=== PATIENT | male | born 1955 | race Caucasian/White ===

== ENCOUNTER → 2016-05-21 | Outpatient (CLI) | payer OTHER ==
[~2016-05-21] MED LIST: ASPI81TA28 PO; ATOR-24 PO; DSY50 PO; GLC500 PO; HALO5TAB PO; LISI-729 PO; PSYL55.43 PO; ZBEC PO
[2016-05-21 08:45] LABS: ALT/SGPT 21 U/L (12-78); BLOOD UREA NITROGEN 8 mg/dl (7-18); CALCIUM 8.6 mg/dl (8.5-10.1); CARBON DIOXIDE 27 mmol/L (21-32); CHLORIDE 104 mmol/L (98-107); CREATININE 0.78 mg/dl (0.60-1.40); GLUCOSE 121 mg/dl (70-99); POTASSIUM 3.8 mmol/L (3.5-5.1); SODIUM 141 mmol/L (136-145)
[2016-05-21 08:48] LABS: ALB/GLOB RATIO 0.8 (0.9-2); ALKALINE PHOSPHATASE 69 U/L (45-117); AST/SGOT 16 U/L (15-37)
== END ==
LOC: C.LABUPUNI 08:16
PROVIDERS: ATTEND Family Medicine
DX: E11.29 Type 2 diabetes mellitus with other diabetic kidney complication (principal)

== ENCOUNTER → 2016-05-28 | Outpatient (CLI) | payer OTHER ==
[2016-05-28 09:40] LABS: ESTIMATED AVERAGE GLUCOSE 151 mg/dl; HA1C FLAG Normal (Normal)
== END ==
LOC: C.LABUPUNI 08:57
PROVIDERS: ATTEND Family Medicine
DX: E11.29 Type 2 diabetes mellitus with other diabetic kidney complication (principal)

== ENCOUNTER → 2016-06-25 | Outpatient (CLI) | payer OTHER | LOC: C.LABUPUNI 09:01 | PROVIDERS: ATTEND Family Medicine | DX: S91.104A Unspecified open wound of right lesser toe(s) without damage to nail, initial encounter (principal); X58.XXXA Exposure to other specified factors, initial encounter ==

== ENCOUNTER → 2016-07-23 | Outpatient (CLI) | payer OTHER ==
[2016-07-23 10:23] LABS: C-REACTIVE PROTEIN < 0.29 mg/dl (0-0.29); CHOLESTEROL 101 mg/dl (0-200); CHOLESTEROL/HDL RATIO 2.9; HDL CHOLESTEROL 35 mg/dl; LDL CHOLESTEROL CALCULATED 43 mg/dl; TRIGLYCERIDES 116 mg/dl (0-150); VERY LOW DENSITY LIPOPROT CALC 23 mg/dl
== END ==
LOC: C.LABUPUNI 09:26
PROVIDERS: ATTEND Family Medicine
DX: E78.5 Hyperlipidemia, unspecified (principal); D64.9 Anemia, unspecified

== ENCOUNTER → 2016-09-09 | Outpatient (CLI) | payer OTHER ==
[2016-09-09 10:49] LABS: HEMATOCRIT 32.3 % (42-52); MEAN CELL VOLUME 86.8 fL (80-100); MEAN CORPUSCULAR HEMOGLOBIN 29.8 pg (25-34); MEAN CORPUSCULAR HGB CONC 34.4 g/dl (32-36); MEAN PLATELET VOLUME 9.5 fL (7.4-10.4); PLATELET COUNT 259 K/uL (130-400); RED BLOOD COUNT 3.72 M/uL (4.7-6.1)
[2016-09-09 11:11] LABS: ESTIMATED AVERAGE GLUCOSE 163 mg/dl; HA1C FLAG Normal (Normal)
== END | disposition home or self-care (01) ==
LOC: C.LABUPUNI 09:24
PROVIDERS: ATTEND Nurse Practitioner Family
DX: E11.29 Type 2 diabetes mellitus with other diabetic kidney complication (principal); I10 Essential (primary) hypertension; M62.81 Muscle weakness (generalized)

== ENCOUNTER → 2016-12-09 | Outpatient (CLI) | payer OTHER ==
[2016-12-09 10:15] LABS: CREATININE 0.83 mg/dl (0.60-1.40)
[2016-12-09 10:48] LABS: ESTIMATED AVERAGE GLUCOSE 169 mg/dl; HA1C FLAG Normal (Normal)
== END | disposition home or self-care (01) ==
LOC: C.LABUPUNI 09:44
PROVIDERS: ATTEND Nurse Practitioner Family
DX: E11.29 Type 2 diabetes mellitus with other diabetic kidney complication (principal); M62.81 Muscle weakness (generalized)

== ENCOUNTER → 2017-03-03 | Outpatient (CLI) | payer OTHER ==
[2017-03-03 09:52] LABS: ESTIMATED AVERAGE GLUCOSE 194 mg/dl; HA1C FLAG Normal (Normal)
== END ==
LOC: C.LABUPNIT 09:20
PROVIDERS: ATTEND Nurse Practitioner Family
DX: E11.29 Type 2 diabetes mellitus with other diabetic kidney complication (principal)

== ENCOUNTER → 2017-05-26 | Outpatient (CLI) | payer OTHER ==
[2017-05-26 19:56] LABS: INFLUENZA A PCR Neg for Influ A (NEG); INFLUENZA B PCR Neg for Influ B (NEG)
== END ==
LOC: C.LABUPUNI 17:55
PROVIDERS: ATTEND Nurse Practitioner Family
DX: Z20.828 Contact with and (suspected) exposure to other viral communicable diseases (principal)

== ENCOUNTER → 2017-06-03 | Outpatient (CLI) | payer OTHER ==
[2017-06-03 08:08] LABS: HEMATOCRIT 34.8 % (42-52); MEAN CELL VOLUME 89.2 fL (80-100); MEAN CORPUSCULAR HEMOGLOBIN 30.8 pg (25-34); MEAN CORPUSCULAR HGB CONC 34.5 g/dl (32-36); MEAN PLATELET VOLUME 10.5 fL (7.4-10.4); PLATELET COUNT 222 K/uL (130-400); RED CELL DISTRIBUTION WIDTH CV 12.8 % (11.5-14.5); RED CELL DISTRIBUTION WIDTH SD 40.6 fL (36.4-46.3); WHITE BLOOD COUNT 6.32 K/uL (4.8-10.8)
[2017-06-03 08:20] LABS: ALKALINE PHOSPHATASE 73 U/L (45-117); ALT/SGPT 20 U/L (12-78); AST/SGOT 12 U/L (15-37); BLOOD UREA NITROGEN 7 mg/dl (7-18); CALCIUM 8.6 mg/dl (8.5-10.1); CARBON DIOXIDE 25 mmol/L (21-32); CHOLESTEROL 91 mg/dl (0-200); CREATININE 0.63 mg/dl (0.60-1.40); GLUCOSE 130 mg/dl (70-99); LDL CHOLESTEROL CALCULATED 39 mg/dl; POTASSIUM 3.8 mmol/L (3.5-5.1); SODIUM 136 mmol/L (136-145); TOTAL PROTEIN 6.5 gm/dl (6.4-8.2)
[2017-06-03 08:29] LABS: HEMOGLOBIN A1C 6.6 % (4.5-5.6)
== END ==
LOC: C.LABUPUNI 07:55
PROVIDERS: ATTEND Nurse Practitioner Family
DX: E11.29 Type 2 diabetes mellitus with other diabetic kidney complication (principal); I10 Essential (primary) hypertension; I73.9 Peripheral vascular disease, unspecified; E78.5 Hyperlipidemia, unspecified

== ENCOUNTER → 2017-06-13 | Outpatient (CLI) | payer OTHER ==
[2017-06-13 05:56] LABS: CREATININE 0.76 mg/dl (0.60-1.40)
== END ==
LOC: C.LABUPUNI 11:53
PROVIDERS: ATTEND Nurse Practitioner Family
DX: E11.29 Type 2 diabetes mellitus with other diabetic kidney complication (principal)

== ENCOUNTER → 2017-07-23 | Outpatient (CLI) | payer OTHER ==
--- NOTE | 2017-07-31 09:00 | CODING QUERY NO DIAGNOSIS ---
: 1955 TREATMENT RENDERED WITHOUT A DIAGNOSIS To promote full compliance with coding requirements relating to patient care, physician participation is requested in all cases of press operator carbon products uncertainty. Please assist us with providing a diagnosis/symptom for the test(s) below: A diagnosis/symptom was not documented on your Order. A valid diagnosis/symptom is required to bill all insurances. Please remember that we are unable to code a diagnosis of rule out, probable, possible, questionable, or suspected. Tests that require a diagnosis: 07/23/17 * FASTING LIPID PROFILE DIAGNOSIS: Provider Signature: Date: Thank you Aye Villanueva tomoguides Information Management Once completed, please kindly fax back to [phone] For questions please call [phone]
== END ==
LOC: C.LABUPUNI 07:53
PROVIDERS: ATTEND Nurse Practitioner Family
DX: E78.5 Hyperlipidemia, unspecified (principal)

== ENCOUNTER → 2017-08-31 | Outpatient (CLI) | payer OTHER ==
[2017-08-31 10:18] LABS: HEMOGLOBIN A1C 6.2 % (4.5-5.6)
== END ==
LOC: C.LABUPUNI 09:33
PROVIDERS: ATTEND Nurse Practitioner Family
DX: E11.29 Type 2 diabetes mellitus with other diabetic kidney complication (principal)

== ENCOUNTER → 2017-12-01 | Outpatient (CLI) | payer OTHER ==
[~2017-12-01] MED LIST changes: -DSY50 PO; +TRAZ1TAB49 PO
[2017-12-01 08:53] LABS: HEMOGLOBIN A1C 6.1 % (4.5-5.6)
== END ==
LOC: C.LABUPUNI 07:48
PROVIDERS: ATTEND Nurse Practitioner Family
DX: E11.29 Type 2 diabetes mellitus with other diabetic kidney complication (principal)

== ENCOUNTER → 2017-12-10 | Outpatient (CLI) | payer OTHER | LOC: C.LABUPUNI 07:38 | PROVIDERS: ATTEND Nurse Practitioner Family | DX: F20.0 Paranoid schizophrenia (principal) ==

== ENCOUNTER → 2017-12-14 | Outpatient (CLI) | payer OTHER | LOC: C.LABUPUNI 09:40 | PROVIDERS: ATTEND Nurse Practitioner Family | DX: E11.29 Type 2 diabetes mellitus with other diabetic kidney complication (principal) ==

== ENCOUNTER 2020-10-17 04:53 | Inpatient (IN) ==
[2020-10-17] MEDS ORDERED: LIDOCAINE/EPINEPH/TETRACAINE 1 EA SYR EXT ONE (05:08)
[2020-10-17] MEDS ORDERED: fentaNYL citrate 100 MCG/2 ML VIAL IV STA (05:20)
--- NOTE | 2020-10-17 05:20 | Emergency Department Note ---
History of Present Illness General Chief complaint: Fall Stated complaint: FALL/HIP PAIN/LACERATION Time Seen by Provider: 10/17/20 04:58 Source: patient Mode of arrival: EMS Limitations: no limitations History of Present Illness Maximum Pain Intensity: 9 This patient is a 65-year-old male who presents to the emergency department via EMS for evaluation of a fall. Patient states he was getting up from bed to go to the bathroom and got his feet tangled in the sheets, causing him to fall. He fell onto his left hip and hit the left side of his head. He reports pain in his left hip rated a 9/10. He does not believe that he lost consciousness during the fall. He denies any prior injuries to the left hip. He denies feeling weak or dizzy prior to the fall. Home Medications Medication Instructions Recorded Confirmed Type acetaminophen 325 mg PO QID PRN 10/17/20 10/17/20 History aspirin [Aspirin Low Dose] 81 mg PO DAILY 10/17/20 10/17/20 History atorvastatin 40 mg PO HS 10/17/20 10/17/20 History bisacodyl [Dulcolax (bisacodyl)] 10 mg MI DAILY 10/17/20 10/17/20 History glimepiride [Amaryl] 1 mg PO DAILY 10/17/20 10/17/20 History glucagon [Glucagon Emergency Kit] 1 mg IM DAILY PRN 10/17/20 10/17/20 History haloperidol lactate 1 mg PO Q12 10/17/20 10/17/20 History lisinopril 2.5 mg PO DAILY 10/17/20 10/17/20 History magnesium hydroxide [Milk of 400 mg PO DAILY PRN 10/17/20 10/17/20 History Magnesia] metformin 1,000 mg PO BID 10/17/20 10/17/20 History zh-mbw-WM-Ga-Aw-isemlev-lutein 1 tab PO DAILY 10/17/20 10/17/20 History [Multivital] psyllium husk [Metamucil] 0.4 g PO DAILY PRN 10/17/20 10/17/20 History scopolamine base 1 patch TRANSDERMAL Q3D 10/17/20 10/17/20 History sertraline [Zoloft] 50 mg PO DAILY 10/17/20 10/17/20 History sodium phosphates [Enema] 118 ml MI HS PRN 10/17/20 10/17/20 History trazodone 50 mg PO HS 10/17/20 10/17/20 History triamcinolone acetonide 1 applic TOPICAL DAILY 10/17/20 10/17/20 History Allergies Allergy/AdvReac Type Severity Reaction Status Date / Time No Known Allergies Allergy Unverified 10/17/20 07:51 Past Med/Surg History Medical History Acquired absence of left great toe Acquired absence of other left toe(s) Callus Diabetes mellitus with neuropathy Diabetic peripheral neuropathy Pain of left foot Surgical History Status post partial amputation of foot Left TMA Social History Smoking Status: Never smoker Second Hand Exposure: No; Do You Dip or Chew Tobacco: No; Tobacco Cessation Education Requested by Patient: No Hx Alcohol Use: No Hx Substance Use: No Preferred Language: Niuean Communication Ability: Effective Supervisor Winding Department Required: No Beliefs That Will Affect Care: None Current Living Situation: Assisted Other Information That Helps Us Care for You: No Feels Safe at Home: Yes Safety Concerns: Feels Safe At This Time Assistive Devices: None Review of Systems A total of 10 systems reviewed and were otherwise negative Physical Exam Vital Signs Vital Signs - 24 hr 10/17/20 06:48 10/17/20 06:49 10/17/20 07:00 Pulse Rate 62 66 Pulse Rate [Apical] 64 Pulse Rate from SpO2 Sensor 63 65 Respiratory Rate 20 12 12 Blood Pressure 135/75 138/78 Blood Pressure [Right Arm] 135/75 Blood Pressure Mean 95 98 Blood Pressure Mean [Right Arm] 95 Pulse Oximetry 95 93 96 Oxygen Delivery Method Room Air 10/17/20 07:30 10/17/20 08:00 10/17/20 08:01 Pulse Rate 63 59 L 61 Pulse Rate [Apical] Pulse Rate from SpO2 Sensor 62 61 61 Respiratory Rate 12 16 13 Blood Pressure 128/74 141/76 H Blood Pressure [Right Arm] Blood Pressure Mean 92 97 Blood Pressure Mean [Right Arm] Pulse Oximetry 96 95 96 Oxygen Delivery Method VITALS: Vitals are noted on the nurse's note and reviewed by myself. GENERAL: This is a 65-year-old male, in no acute distress, appears older than stated age. SKIN: There is a 2 cm Y-shaped laceration superior to the left eyebrow. No active bleeding from the wound. HEAD: Normocephalic atraumatic. EARS: External auditory canals clear, tympanic membranes pearly benjamin without erythema or effusion bilaterally. No hemotympanum. EYES: Pupils equal round and reactive to light and accommodation. Extraocular movements intact. MOUTH: Mucous membranes moist. NECK: Supple without nuchal rigidity. Cervical spine is nontender. HEART: Regular rate and rhythm without murmurs gallops or rubs. LUNGS: Clear to auscultation bilaterally without wheezes, rales or rhonchi. ABDOMEN: Positive bowel sounds x 4. Soft, nontender to palpation. MUSCULOSKELETAL: Left lower extremity is shortened and externally rotated. There is tenderness to palpation of the lateral left hip. NEURO: Patient was alert and oriented to person place and time. Procedures Laceration Facial laceration: Site: face Side (If applicable): left Size (cm): 2 Description: other (Y-shaped) Depth: simple, single layer Local Anesthetic: other anesthetic (LET gel) Pre-repair: wound explored Skin layer closed with: nylon Size (cm): 6-0 Number of sutures: 6 Technique: simple, interrupted Course Administered Medications Haloperidol Lactate (Haloperidol 1 Mg/0.5 Ml Udp) 1 mg PO Q12 [facility] Stop: 11/16/20 10:44 Last Admin: 10/17/20 22:35 Dose: 1 mg Documented by: [id number] Admin: 10/17/20 12:40 Dose: 1 mg Documented by: [id number] Lactated Ringer's (Lr) 1,000 mls @ 100 mls/hr IV .Q10H [facility] Stop: 11/16/20 09:49 Last Admin: 10/17/20 20:42 Dose: 100 mls/hr Documented by: [id number] Infusion: 10/17/20 20:36 Dose: 100 mls/hr Documented by: [id number] Admin: 10/17/20 10:36 Dose: 100 mls/hr Documented by: [id number] Cefazolin Sodium (Ancef 3000mg) 65 mls @ 130 mls/hr IV PREOP [facility]; Protocol Stop: 10/18/20 05:59 Last Admin: 10/17/20 17:28 Dose: Not Given Documented by: [id number] Insulin Aspart (Insulin Aspart 100 Units/Ml 3 Ml Pen) 0 units SC ACHS [facility]; Protocol Stop: 11/16/20 11:59 Last Admin: 10/17/20 22:37 Dose: 2 units Documented by: [id number] Cosigned by: [id number] Lisinopril (Lisinopril 2.5 Mg Tab) 2.5 mg PO DAILY [facility] Stop: 11/16/20 09:45 Last Admin: 10/17/20 12:37 Dose: 2.5 mg Documented by: [id number] Miscellaneous (Remove Transderm-Scop Patch) 1 ea N/A Q72H [facility] Stop: 11/16/20 09:58 Last Admin: 10/17/20 12:36 Dose: 1 ea Documented by: [id number] Rosycellaneous (Check Scopolamine Patch Placement) 1 ea N/A QS [facility] Stop: 11/16/20 15:59 Last Admin: 10/17/20 23:44 Dose: 1 ea Documented by: [id number] Admin: 10/17/20 17:29 Dose: 1 ea Documented by: [id number] Oxycodone HCl (Oxycodone Hcl Ir 5 Mg Tab (Immediate Release)) 10 mg PO Q4H PRN PRN Reason: SEVERE Pain (7,8,9,10) Stop: 10/31/20 09:45 Last Admin: 10/17/20 10:35 Dose: 10 mg Documented by: [id number] Scopolamine (Scopolamine 1 Mg Tdsy) 1 mg TD Q3D [facility] Stop: 11/16/20 09:59 Last Admin: 10/17/20 13:49 Dose: 1 mg Documented by: [id number] Senna/Docusate Sodium (Docusate Sodium/Senna 50/8.6mg Tab) 2 tab PO [facility] Stop: 11/16/20 20:59 Last Admin: 10/17/20 20:45 Dose: 2 tab Documented by: [id number] Sertraline HCl (Sertraline Hcl 50 Mg Tablet) 50 mg PO DAILY [facility] Stop: 11/16/20 09:45 Last Admin: 10/17/20 12:37 Dose: 50 mg Documented by: [id number] Trazodone HCl (Trazodone Hcl 50 Mg Tab) 50 mg PO [facility] Stop: 11/16/20 20:59 Last Admin: 10/17/20 20:44 Dose: 50 mg Documented by: [id number] Triamcinolone Acetonide (Triamcinolone Acet 0.1% Cr 15 Gm Tube) 1 appln TOP DAILY [facility] Stop: 11/16/20 09:59 Last Admin: 10/17/20 12:37 Dose: Not Given Documented by: [id number] Discontinued Medications Fentanyl Citrate (Fentanyl Citrate 100 Mcg/2 Ml Vial) 50 mcg IV NOW STA Stop: 10/17/20 05:21 Last Admin: 10/17/20 05:52 Dose: 50 mcg Documented by: [id number] Haloperidol Lactate (Haloperidol 2 Mg/1 Ml Udp) 1 mg PO Q12 [facility] Stop: 11/16/20 09:59 Last Admin: 10/17/20 13:42 Dose: Not Given Documented by: [id number] Insulin Aspart (Insulin Aspart 100 Units/Ml 3 Ml Pen) 0 units SC Q6 [facility]; Protocol Stop: 11/16/20 11:59 Last Admin: 10/17/20 17:55 Dose: 4 units Documented by: [id number] Cosigned by: [id number] Admin: 10/17/20 13:48 Dose: 2 units Documented by: [id number] Cosigned by: [id number] Lidocaine (Lidocaine/Epineph/Tetracaine 1 Ea Syr) 1 ea EXT NOW ONE Stop: 10/17/20 05:09 Last Admin: 10/17/20 05:18 Dose: 1 ea Documented by: [id number] Medical Decision Making Differential Diagnosis Differential diagnosis includes hip fracture, hip dislocation, hip contusion, intracranial hemorrhage, closed head injury, among others. Home Medications Current Medication List: was personally reviewed by me Laboratory Data Attestation: I reviewed the patient's lab results. Result diagrams: 10/17/20 05:43 10/17/20 05:43 Lab Results 10/17/20 10/17/20 10/17/20 Range/Units 05:43 05:43 05:43 WBC 5.66 (4.8-10.8) K/uL RBC 3.77 L (4.7-6.1) M/uL Hgb 11.6 L (14.0-18.0) g/dL Hct 33.8 L (42-52) % MCV 89.7 (80-100) fL MCH 30.8 (25-34) pg MCHC 34.3 (32-36) g/dL RDW Std Deviation 41.3 (36.4-46.3) fL RDW Coeff of Lonnie 12.7 (11.5-14.5) % Plt Count 223 (130-400) K/uL MPV 9.4 (7.4-10.4) fL Immature Gran % (Auto) 0.2 % Neut % (Auto) 51.2 % Lymph % (Auto) 29.5 % [place] % (Auto) 10.2 % Eos % (Auto) 8.7 % Baso % (Auto) 0.2 % Neut # (Auto) 2.90 (1.4-6.5) K/uL Lymph # (Auto) 1.67 (1.2-3.4) K/uL [place] # (Auto) 0.58 (0.11-0.59) K/uL Eos # (Auto) 0.49 (0-0.5) K/uL Baso # (Auto) 0.01 (0-0.2) K/uL Immature Gran # (Auto) 0.01 (0.00-0.02) K/uL PT 11.9 (9.0-12.0) Seconds INR 1.2 H (0.9-1.1) APTT 26.3 (21.0-31.0) Seconds PTT Ratio 1.0 Sodium (136-145) mmol/L Potassium (3.5-5.1) mmol/L Chloride (98-107) mmol/L Carbon Dioxide (21-32) mmol/L Anion Gap (3-11) BUN (7-18) mg/dl Creatinine (0.6-1.4) mg/dl Est Cr Clr Drug Dosing ml/min Est GFR ( Amer) ml/min Est GFR (Non-Af Amer) ml/min BUN/Creatinine Ratio (10-20) Glucose (70-99) mg/dl Calcium (8.5-10.1) mg/dl Total Bilirubin (0.2-1) mg/dl AST (15-37) U/L ALT (12-78) U/L Alkaline Phosphatase (45-117) U/L Total Protein (6.4-8.2) gm/dl Albumin (3.4-5.0) gm/dl Globulin (2.5-4.0) gm/dl Albumin/Globulin Ratio (0.9-2) 25-OH Vitamin D Total (30-100) ng/ml Urine Color Urine Appearance (Clear) Urine pH (4.5-7.5) Ur Specific [place] (1.000-1.030) Urine Protein (Negative) Urine Glucose (UA) (Negative) Urine Ketones (Negative) Urine Blood (Negative) Urine Nitrite (Negative) Urine Bilirubin (Negative) Urine Urobilinogen (Negative) Ur Leukocyte Esterase (Negative) COVID-19 Eval Order SARS-CoV-2 (PCR) (Negative) Blood Type O Positive Antibody Screen NEGATIVE 10/17/20 10/17/20 10/17/20 Range/Units 05:43 05:44 05:50 WBC (4.8-10.8) K/uL RBC (4.7-6.1) M/uL Hgb (14.0-18.0) g/dL Hct (42-52) % MCV (80-100) fL MCH (25-34) pg MCHC (32-36) g/dL RDW Std Deviation (36.4-46.3) fL RDW Coeff of Lonnie (11.5-14.5) % Plt Count (130-400) K/uL MPV (7.4-10.4) fL Immature Gran % (Auto) % Neut % (Auto) % Lymph % (Auto) % [place] % (Auto) % Eos % (Auto) % Baso % (Auto) % Neut # (Auto) (1.4-6.5) K/uL Lymph # (Auto) (1.2-3.4) K/uL [place] # (Auto) (0.11-0.59) K/uL Eos # (Auto) (0-0.5) K/uL Baso # (Auto) (0-0.2) K/uL Immature Gran # (Auto) (0.00-0.02) K/uL PT (9.0-12.0) Seconds INR (0.9-1.1) APTT (21.0-31.0) Seconds PTT Ratio Sodium 138 (136-145) mmol/L Potassium 4.0 (3.5-5.1) mmol/L Chloride 105 (98-107) mmol/L Carbon Dioxide 31 (21-32) mmol/L Anion Gap 2.0 L (3-11) BUN 14 (7-18) mg/dl Creatinine 1.04 (0.6-1.4) mg/dl Est Cr Clr Drug Dosing 96.1 ml/min Est GFR ( Amer) 88.1 ml/min Est GFR (Non-Af Amer) 76.1 ml/min BUN/Creatinine Ratio 13.2 (10-20) Glucose 157 H (70-99) mg/dl Calcium 8.4 L (8.5-10.1) mg/dl Total Bilirubin 0.5 (0.2-1) mg/dl AST 11 L (15-37) U/L ALT 18 (12-78) U/L Alkaline Phosphatase 92 (45-117) U/L Total Protein 7.3 (6.4-8.2) gm/dl Albumin 3.5 (3.4-5.0) gm/dl Globulin 3.8 (2.5-4.0) gm/dl Albumin/Globulin Ratio 0.9 (0.9-2) 25-OH Vitamin D Total 26.3 L (30-100) ng/ml Urine Color Yellow Urine Appearance Clear (Clear) Urine pH 8.0 H (4.5-7.5) Ur Specific [place] 1.013 (1.000-1.030) Urine Protein Negative (Negative) Urine Glucose (UA) Negative (Negative) Urine Ketones Negative (Negative) Urine Blood Negative (Negative) Urine Nitrite Negative (Negative) Urine Bilirubin Negative (Negative) Urine Urobilinogen Negative (Negative) Ur Leukocyte Esterase Negative (Negative) COVID-19 Eval Order SARS-CoV-2 (PCR) (Negative) Blood Type Antibody Screen 10/17/20 10/17/20 Range/Units 06:30 06:30 WBC (4.8-10.8) K/uL RBC (4.7-6.1) M/uL Hgb (14.0-18.0) g/dL Hct (42-52) % MCV (80-100) fL MCH (25-34) pg MCHC (32-36) g/dL RDW Std Deviation (36.4-46.3) fL RDW Coeff of Lonnie (11.5-14.5) % Plt Count (130-400) K/uL MPV (7.4-10.4) fL Immature Gran % (Auto) % Neut % (Auto) % Lymph % (Auto) % [place] % (Auto) % Eos % (Auto) % Baso % (Auto) % Neut # (Auto) (1.4-6.5) K/uL Lymph # (Auto) (1.2-3.4) K/uL [place] # (Auto) (0.11-0.59) K/uL Eos # (Auto) (0-0.5) K/uL Baso # (Auto) (0-0.2) K/uL Immature Gran # (Auto) (0.00-0.02) K/uL PT (9.0-12.0) Seconds INR (0.9-1.1) APTT (21.0-31.0) Seconds PTT Ratio Sodium (136-145) mmol/L Potassium (3.5-5.1) mmol/L Chloride (98-107) mmol/L Carbon Dioxide (21-32) mmol/L Anion Gap (3-11) BUN (7-18) mg/dl Creatinine (0.6-1.4) mg/dl Est Cr Clr Drug Dosing ml/min Est GFR ( Amer) ml/min Est GFR (Non-Af Amer) ml/min BUN/Creatinine Ratio (10-20) Glucose (70-99) mg/dl Calcium (8.5-10.1) mg/dl Total Bilirubin (0.2-1) mg/dl AST (15-37) U/L ALT (12-78) U/L Alkaline Phosphatase (45-117) U/L Total Protein (6.4-8.2) gm/dl Albumin (3.4-5.0) gm/dl Globulin (2.5-4.0) gm/dl Albumin/Globulin Ratio (0.9-2) 25-OH Vitamin D Total (30-100) ng/ml Urine Color Urine Appearance (Clear) Urine pH (4.5-7.5) Ur Specific [place] (1.000-1.030) Urine Protein (Negative) Urine Glucose (UA) (Negative) Urine Ketones (Negative) Urine Blood (Negative) Urine Nitrite (Negative) Urine Bilirubin (Negative) Urine Urobilinogen (Negative) Ur Leukocyte Esterase (Negative) COVID-19 Eval Order Covid19 at [facility] SARS-CoV-2 (PCR) NEGATIVE (Negative) Blood Type Antibody Screen Imaging Data Attestation: I personally reviewed and interpreted this imaging study as follows: My Impression: LEFT FEMUR, PELVIS: Nondisplaced intertrochanteric hip fracture. Radiologist's Impression: Head CT 10/17/20 05:08 CT OF THE HEAD WITHOUT CONTRAST CLINICAL HISTORY: fall, head injury COMPARISON STUDY: No previous studies for comparison. CT DOSE: 614.27 mGy.cm TECHNIQUE: Helical axial images of the head were obtained without IV contrast. Automated exposure control was utilized for the study. A dose lowering technique was utilized adhering to the principles of ALARA. FINDINGS: No acute intracranial hemorrhage, midline shift or mass effect is present. White matter hypodensities are suggestive of small vessel disease. The ventricular system is unremarkable. The basal cisterns are patent. No extra- axial collections are present. There are no findings to suggest acute dural sinus thrombosis or acute territorial infarct. No significant calvarial abnormalities are present. Visualized portions of the sinuses and mastoid air cells are clear. IMPRESSION: 1. No acute intracranial findings. 2. No calvarial fracture. ACT 112: Negative or not required by law. Electronically signed by: Luis Potter M.D. 10/17/2020 6:38 AM ECG Data Attestation: I personally reviewed and interpreted this ECG as follows: Indication: + other Rate (beats per minute): 67 ECG Intervals/blocks: + Normal QRS ECG [place]: + Normal ECG ST segments: + Normal ST segments Change: no significant change MDM Narrative Continuous cardiac catheterization technologist: Order was placed for continuous cardiac catheterization technologist. Patient was placed on the cardiac catheterization technologist. Patient was noted to be in normal sinus rhythm at an initial rate of 69 bpm. The patient is a 65-year-old male who presents today for evaluation of a fall and left hip injury. Patient was found to have a left hip fracture. CT of the head was unremarkable. He did sustain a facial laceration which was repaired as noted in the procedure section. Patient tolerated this well. The case was discussed with the [facility] service, who agreed to evaluate the patient for further care. Impression & Plan Intertrochanteric fracture of left hip, Facial laceration, Fall Discharge Plan Visit Data Chief Complaint: Fall Stated Complaint: FALL/HIP PAIN/LACERATION ED Provider: Josef Pierre ED Midlevel Provider: Malissa Bullock Discharge Problem: Intertrochanteric fracture of left hip, Facial laceration, Fall Patient Disposition: Admitted As Inpatient Discharge Instructions Interventions: ED Discharge Assessment Last Done: 10/17/20 09:14 Discharge Problem: Intertrochanteric fracture of left hip Qualifiers: Encounter type: initial encounter Fracture type: closed Fracture alignment: nondisplaced Qualified Code(s): S72.145A - Nondisplaced intertrochanteric fracture of left femur, initial encounter for closed fracture Facial laceration Qualifiers: Encounter type: initial encounter Qualified Code(s): S01.81XA - Laceration without foreign body of other part of head, initial encounter Fall Qualifiers: Encounter type: initial encounter Qualified Code(s): W19.XXXA - Unspecified fall, initial encounter
--- NOTE | 2020-10-17 05:28 | Emergency Department Note ---
ED Visit Note Physician Evaluation Note: I have personally evaluated and examined this patient. I agree with assessment and plan of Malissa Bullock PA-C. Fall at home after tripping on sheets and now left hip and left eyebrow pain. Left hip fracture on imaging. Patient comfortable and will come in to hospital for management. Josef Pierre MD
[2020-10-17 05:50] LABS: Basophils # (auto) 0.01 K/uL (0-0.2); Basophils % (auto) 0.2 %; Eosinophils # (auto) 0.49 K/uL (0-0.5); Eosinophils % (auto) 8.7 %; Hematocrit (blood only) 33.8 % (42-52); Hemoglobin 11.6 g/dL (14.0-18.0); Immature Granulocytes # (auto) 0.01 K/uL (0.00-0.02); Immature Granulocytes % (auto) 0.2 %; Lymphocytes # (auto) 1.67 K/uL (1.2-3.4); Lymphocytes % (auto) 29.5 %; Mean Corpuscular Hemoglobin 30.8 pg (25-34); Mean Corpuscular Hgb Conc 34.3 g/dL (32-36); Mean Corpuscular Volume 89.7 fL (80-100); Mean Platelet Volume 9.4 fL (7.4-10.4); Monocytes # (auto) 0.58 K/uL (0.11-0.59); Monocytes % (auto) 10.2 %; Neutrophils % (auto) 51.2 %; Platelet Count 223 K/uL (130-400); RDW Coefficient of Variation 12.7 % (11.5-14.5); RDW Standard Deviation 41.3 fL (36.4-46.3); Red Blood Count 3.77 M/uL (4.7-6.1); White Blood Count 5.66 K/uL (4.8-10.8)
[2020-10-17 06:01] LABS: INR 1.2 (0.9-1.1); Partial Thromboplastin Time 26.3 Seconds (21.0-31.0); Prothrombin Time 11.9 Seconds (9.0-12.0)
[2020-10-17 06:07] LABS: Albumin Level 3.5 gm/dl (3.4-5.0); BUN Creatinine Ratio 13.2 (10-20); Calcium 8.4 mg/dl (8.5-10.1); Creatinine Clr Calc Pharmacy 96.1 ml/min; Est GFR (African American) 88.1 ml/min; Est GFR (Non-African American) 76.1 ml/min
[2020-10-17 06:09] LABS: Albumin Globulin Ratio 0.9 (0.9-2); Bilirubin,Total 0.5 mg/dl (0.2-1); Globulin 3.8 gm/dl (2.5-4.0); Total Protein 7.3 gm/dl (6.4-8.2)
[2020-10-17 06:19] LABS: Appearance Urine Clear (Clear); Bilirubin Urine Negative (Negative); Blood Urine Negative (Negative); Color Urine Yellow; Glucose Urine UA Negative (Negative); Ketones Urine Negative (Negative); Leukocyte Esterase Urine Negative (Negative); Nitrite Urine Negative (Negative); Protein Urine Negative (Negative); Specific Gravity Urine 1.013 (1.000-1.030); Urobilinogen Urine Negative (Negative)
--- NOTE | 2020-10-17 06:39 | CT Scan Report ---
CT OF THE HEAD WITHOUT CONTRAST CLINICAL HISTORY: fall, head injury COMPARISON STUDY: No previous studies for comparison. CT DOSE: 614.27 mGy.cm TECHNIQUE: Helical axial images of the head were obtained without IV contrast. Automated exposure con trol was utilized for the study. A dose lowering technique was utilized adhering to the principles o f ALARA. FINDINGS: No acute intracranial hemorrhage, midline shift or mass effect is present. White matter hyp odensities are suggestive of small vessel disease. The ventricular system is unremarkable. The basal cisterns are patent. No extra-axial collections are present. There are no findings to suggest acute d ural sinus thrombosis or acute territorial infarct. No significant calvarial abnormalities are presen t. Visualized portions of the sinuses and mastoid air cells are clear. IMPRESSION: 1. No acute intracranial findings. 2. No calvarial fracture. ACT 112: Negative or not required by law. Electronically signed by: Luis Potter M.D. 10/17/2020 6:38 AM
--- NOTE | 2020-10-17 07:59 | XRay Report ---
XR femur LT 2V routine CLINICAL HISTORY: left hip injury COMPARISON: None FINDINGS: Note is made of an acute nondisplaced intertrochanteric fracture of the left femur with mi nimal subtrochanteric extension. No distal left femoral fracture is present. Alignment of the left hi p and left knee is anatomic. No osseous lesion within the left femur. IMPRESSION: Acute nondisplaced intertrochanteric fracture of the left femur with slight subtrochanter ic extension. ACT 112: Negative or not required by law. Electronically signed by: Luis Potter M.D. 10/17/2020 7:58 AM
--- NOTE | 2020-10-17 08:01 | XRay Report ---
SUPINE PORTABLE AP CHEST RADIOGRAPH CLINICAL HISTORY: fall, hip fx COMPARISON STUDY: Chest radiograph July 19, 2015. FINDINGS: Lung volumes are diminished. There is elevation of the left hemidiaphragm. No pneumothorax or pleural effusion is noted. There is left basilar opacity. Cardiac size is within normal limits on this supine exam. IMPRESSION: 1. Left basilar opacity which statistically reflects atelectasis given elevation of the left hemidiap hragm. 2. No pneumothorax identified on supine exam. ACT 112: Negative or not required by law. Electronically signed by: uLis Potter M.D. 10/17/2020 7:59 AM
--- NOTE | 2020-10-17 08:02 | XRay Report ---
XR pelvis 1-2V routine CLINICAL HISTORY: left hip injury COMPARISON: None FINDINGS: There is an acute nondisplaced intertrochanteric fracture of the left femur with slight russ btrochanteric extension. No additional acute fractures are identified on this exam. The sacroiliac amanuel ints and symphysis pubis are intact. Hip joint spaces are preserved with mild osteophytosis of the hi ps. IMPRESSION: Acute nondisplaced intertrochanteric fracture of the left femur with slight subtrochanter ic extension. ACT 112: Negative or not required by law. Electronically signed by: Luis Potter M.D. 10/17/2020 8:01 AM
[2020-10-17] MEDS ORDERED: MoRPHine SULFATE 2 MG/ML CARP IV PRN (09:46)
[2020-10-17] MEDS ORDERED: MAGNESIUM HYDROXIDE SUSP 30 ML UDC PO PRN (09:46)
[2020-10-17] MEDS ORDERED: MoRPHine SULFATE 4 MG/ML 1 ML CARP\\VIAL IV PRN (09:46)
[2020-10-17] MEDS ORDERED: bisacodyL 10 MG SUPP PR PRN (09:46)
[2020-10-17] MEDS ORDERED: GLUCAGON 1 MG IM PRN (09:46)
[2020-10-17] MEDS ORDERED: oxyCODONE HCL IR 5 MG TAB (IMMEDIATE RELEASE) PO PRN (09:46)
[2020-10-17] MEDS ORDERED: NALOXONE HCL 0.4 MG/1 ML VIAL/CARP IV PRN (09:46)
[2020-10-17] MEDS ORDERED: DEXTROSE 50% 50 ML SYRINGE IV PRN (09:46)
[2020-10-17] MEDS ORDERED: GLUCAGON FOR INJ 1 MG VIAL SQ PRN (09:46)
[2020-10-17] MEDS ORDERED: GLUCOSE 40% GEL 15 GM TUBE PO PRN (09:46)
[2020-10-17] MEDS ORDERED: GLUCOSE 10 TABS/TUBE PO PRN (09:46)
[2020-10-17] MEDS ORDERED: CARBOHYDRATES FOR HYPOGLYCEMIA PO PRN (09:46)
[2020-10-17] MEDS ORDERED: HALOPERIDOL 2 MG/1 ML UDP PO SCH (10:00)
--- NOTE | 2020-10-17 10:03 | History & Physical Report ---
Date of Service October 17, 2020 Assessment & Plan (1) Intertrochanteric fracture of left hip: Patient mechanical fall with a left intertrochanteric hip fracture. He has no cardiovascular symptoms upon interview he is lying flat in the bed his EKG shows relative bradycardia with low voltage but no concerning ST or T wave changes chest x-ray is unremarkable laboratories are in good condition he does have some preoperative anemia he is medically optimized proceed to surgery will be kept n.p.o. pain control IV fluids and orthopedic consultation may undertaken (2) Alzheimers disease: Patient remains on trazodone and Zoloft (3) Diabetes mellitus with neuropathy: Patient placed on insulin sliding scale continue lisinopril for reduction of nephropathy from diabetes Admission and Anticipated Discharge Date Admission Date: October 17, 2020 History of Present Illness Primary Care Provider: [facility] Patient and its unfortunate 65-year-old male with early onset Alzheimer's disease who is a resident of nursing home facility he is on multiple medic ations to control behavior he had a mechanical fall sustaining left hip fracture. Associate with the fall he had the left side of his head which required suture repair. Denies loss of consciousness head CT was without intracranial derangement or calvarial fracture. Patient is medically optimized for surgery orthopedics was consulted he is kept n.p.o. Allergies Allergy/AdvReac Type Severity Reaction Status Date / Time No Known Allergies Allergy Unverified 10/17/20 07:51 Home Medications Medication Instructions Recorded Confirmed Type acetaminophen 325 mg PO QID PRN 10/17/20 10/17/20 History aspirin [Aspirin Low Dose] 81 mg PO DAILY 10/17/20 10/17/20 History atorvastatin 40 mg PO HS 10/17/20 10/17/20 History bisacodyl [Dulcolax (bisacodyl)] 10 mg CO DAILY 10/17/20 10/17/20 History glimepiride [Amaryl] 1 mg PO DAILY 10/17/20 10/17/20 History glucagon [Glucagon Emergency Kit] 1 mg IM DAILY PRN 10/17/20 10/17/20 History haloperidol lactate 1 mg PO Q12 10/17/20 10/17/20 History lisinopril 2.5 mg PO DAILY 10/17/20 10/17/20 History magnesium hydroxide [Milk of 400 mg PO DAILY PRN 10/17/20 10/17/20 History Magnesia] metformin 1,000 mg PO BID 10/17/20 10/17/20 History ks-qdr-QL-Lm-Hc-uduztig-lutein 1 tab PO DAILY 10/17/20 10/17/20 History [Multivital] psyllium husk [Metamucil] 0.4 g PO DAILY PRN 10/17/20 10/17/20 History scopolamine base 1 patch TRANSDERMAL Q3D 10/17/20 10/17/20 History sertraline [Zoloft] 50 mg PO DAILY 10/17/20 10/17/20 History sodium phosphates [Enema] 118 ml CO HS PRN 10/17/20 10/17/20 History trazodone 50 mg PO HS 10/17/20 10/17/20 History triamcinolone acetonide 1 applic TOPICAL DAILY 10/17/20 10/17/20 History Past Med/Surg History Medical History Acquired absence of left great toe Acquired absence of other left toe(s) Callus Diabetes mellitus with neuropathy Diabetic peripheral neuropathy Pain of left foot Surgical History Status post partial amputation of foot Left TMA Social History Smoking Status: Never smoker Second Hand Exposure: No; Do You Dip or Chew Tobacco: No; Tobacco Cessation Education Requested by Patient: No Hx Alcohol Use: No Hx Substance Use: No Preferred Language: Yoruba Communication Ability: Effective 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: No Beliefs That Will Affect Care: None Current Living Situation: [facility] Other Information That Helps Us Care for You: No Feels Safe at Home: Yes Safety Concerns: Feels Safe At This Time Assistive Devices: None Review of Systems Review of Systems: Mild distress and fatigue no headache, no visual changes no speech or swallowing issues no chest pain, pressure or palpitations no shortness of breath, cough or wheezes no abdominal pain, nausea or vomiting, diarrhea or constipation no dysuria, hematuria or frequency Left hip pain and movement no back pain, CVA tenderness or radicular pain no bruising, bleeding or rashes no focal signs of weakness does have peripheral neuropathy no complaints of anxiety or depression.. Physical Exam Physical Exam: The patient appeared conically ill Vital signs as documented. Head exam is normocephalic atraumatic Neck is without JVD, thyromegaly, or carotid bruits. Lungs are clear to auscultation, no focal loss of breath sounds Cardiac exam, Rhythm is regular.. No murmurs, rubs or gallops. Abdominal exam reveals normal bowel sounds, soft non tender, no masses Left lower leg is shortened and externally rotated painful to move distal pulses are weak but intact he is missing all the toes of his left foot Neurologic exam is alert and oriented x2, no focal loss of strength peripheral neuropathy Skin is with peripheral changes of chronic venous stasis Psychologically is without concerns for anxiety or depression Results & Data Results & Data ([facility]) Vital Signs (Past 12 Hours) Vital Signs Temp Pulse Pulse Pulse Resp BP BP 10/17/20 09:30 98.2 F 69 18 160/80 H 10/17/20 09:14 98.2 F 66 18 141/78 H 10/17/20 09:00 98.2 F 70 14 141/78 H 10/17/20 08:30 63 16 146/76 H 10/17/20 08:01 61 13 10/17/20 08:00 59 L 16 141/76 H 10/17/20 07:30 63 12 128/74 10/17/20 07:00 66 12 138/78 10/17/20 06:49 62 12 135/75 10/17/20 06:48 64 20 135/75 10/17/20 05:01 98.1 F 69 17 151/95 H Pulse Ox 10/17/20 09:30 95 10/17/20 09:14 95 10/17/20 09:00 95 10/17/20 08:30 94 10/17/20 08:01 96 10/17/20 08:00 95 10/17/20 07:30 96 10/17/20 07:00 96 10/17/20 06:49 93 10/17/20 06:48 95 10/17/20 05:01 97 Chest X-Ray 10/17/20 05:08 SUPINE PORTABLE AP CHEST RADIOGRAPH CLINICAL HISTORY: fall, hip fx COMPARISON STUDY: Chest radiograph July 19, 2015. FINDINGS: Lung volumes are diminished. There is elevation of the left hemidiaphragm. No pneumothorax or pleural effusion is noted. There is left basilar opacity. Cardiac size is within normal limits on this supine exam. IMPRESSION: 1. Left basilar opacity which statistically reflects atelectasis given elevation of the left hemidiaphragm. 2. No pneumothorax identified on supine exam. Electronically signed by: Luis Potter M.D. 10/17/2020 7:59 AM Femur X-Ray 10/17/20 05:08 XR femur LT 2V routine CLINICAL HISTORY: left hip injury COMPARISON: None FINDINGS: Note is made of an acute nondisplaced intertrochanteric fracture of the left femur with minimal subtrochanteric extension. No distal left femoral fracture is present. Alignment of the left hip and left knee is anatomic. No osseous lesion within the left femur. IMPRESSION: Acute nondisplaced intertrochanteric fracture of the left femur with slight subtrochanteric extension. Electronically signed by: Luis Potter M.D. 10/17/2020 7:[address] 10/17/20 05:08 CT OF THE HEAD WITHOUT CONTRAST CLINICAL HISTORY: fall, head injury COMPARISON STUDY: No previous studies for comparison. CT DOSE: 614.27 mGy.cm TECHNIQUE: Helical axial images of the head were obtained without IV contrast. Automated exposure control was utilized for the study. A dose lowering t echnique was utilized adhering to the principles of ALARA. FINDINGS: No acute intracranial hemorrhage, midline shift or mass effect is present. White matter hypodensities are suggestive of small vessel disease. The ventricular system is unremarkable. The basal cisterns are patent. No extra- axial collections are present. There are no findings to suggest acute dural sinus thrombosis or acute territorial infarct. No significant calvarial abnormalities are present. Visualized portions of the sinuses and mastoid air cells are clear. IMPRESSION: 1. No acute intracranial findings. 2. No calvarial fracture. Electronically signed by: Luis Potter M.D. 10/17/2020 6:38 AM Pelvis X-Ray 10/17/20 05:08 XR pelvis 1-2V routine CLINICAL HISTORY: left hip injury COMPARISON: None FINDINGS: There is an acute nondisplaced intertrochanteric fracture of the left femur with slight subtrochanteric extension. No additional acute fractures are identified on this exam. The sacroiliac joints and symphysis pubis are intact. Hip joint spaces are preserved with mild osteophytosis of the hips. IMPRESSION: Acute nondisplaced intertrochanteric fracture of the left femur with slight subtrochanteric extension. Electronically signed by: Luis Potter M.D. 10/17/2020 8:01 AM EKG shows normal sinus rhythm no ST or T wave changes, low voltage is noted Code Status & VTE Plan VTE Prophylaxis Plan VTE Prophylaxis will be ordered: Yes PG Care Time/CCT Total # of Minutes Spent Total Time Spent with Patient: Total time spent is greater than 50% in coordination of care (as documented) at patient's floor/unit and/or counseling patient: Coding Level of Care Code 27798 Initial Inpt Care Lvl 2 Diagnoses Intertrochanteric fracture of left hip S72.142A Alzheimers disease G30.9; F02.80 Diabetes mellitus with neuropathy E11.40
[2020-10-17] MEDS ORDERED: PHARMACY GLYCEMIC MGMT CONSULT PRN (10:05)
[2020-10-17] MEDS: oxyCODONE HCL IR 5 MG TAB (IMMEDIATE RELEASE) PO PRN (10:35)
[2020-10-17] MEDS: LACTATED RINGER'S 1,000 ML IV SCH ×2 (10:36→20:42)
[2020-10-17] MEDS ORDERED: Nursing to Pharmacy Communication SCH (11:30)
[2020-10-17] MEDS: TRIAMCINOLONE ACET 0.1% CR 15 GM TUBE TOP SCH (12:37)
[2020-10-17] MEDS: SERTRALINE HCL 50 MG TABLET PO SCH (12:37)
[2020-10-17] MEDS: lisinopril 2.5 MG TAB PO SCH (12:37)
[2020-10-17] MEDS: HALOPERIDOL 1 MG/0.5 ML UDP PO SCH ×2 (12:40→22:35)
--- NOTE | 2020-10-17 12:52 | Pharmacy Report ---
Pharmacy Glycemic Short Note 2 - Date of Service October 17, 2020 - Glycemic Short BSG Results (Last 24 hours): 10/17/20 10/17/20 05:43 12:09 Glucose 157 H POC Glucose 163 H OUTPATIENT ANTIDIABETIC REGIMEN: * Glimepiride 1 mg PO daily * Metformin 1000 mg PO BIDM * HbA1c = 6.9% (07/25/20) * New HbA1c pending for tomorrow morning ASSESSMENT: * 65 yo M admitted secondary to a left hip fracture. Pharmacy has been consulted for assistance with inpatient glycemic management. * Patient is to go to the OR this afternoon and has been NPO since admission. * Started patient on Novolog based on a weight and stress of 2-3. * This may need tightened postoperatively. * Patient may require a dose of NPH postoperatively depending on whether a diet is ordered and if steroids were given. * Will follow-up this afternoon/evening. PLAN FOR INPATIENT GLYCEMIC CONTROL: * Hold outpatient oral diabetes medications * Basal insulin * None as of now. May require NPH postoperatively. * Bolus insulin * NovoLog per scale ACHS or Q6hrs while NPO * Goal Range: Low 110 mg/dL - High 140 mg/dL * Correction Factor: 20 mg/dL/unit * Nutritional / Prandial insulin per carb ratio of 1 unit per 7 grams CHO consumed PLAN FOR DISCHARGE: * To be determined
[2020-10-17] MEDS: INSULIN ASPART 100 UNITS/ML 3 ML PEN SC SCH ×3 (13:48→22:37)
[2020-10-17] MEDS: SCOPOLAMINE 1 MG TDSY TD SCH (13:49)
[2020-10-17] MEDS ORDERED: LIDOCAINE 2% 2 ML VIAL/AMP(20MG/ML) INFIL ONE (15:48)
[2020-10-17] MEDS ORDERED: PROPOFOL IV EMULSION 10 MG/ML 20 ML VIAL IV ONE (15:48)
[2020-10-17] MEDS ORDERED: fentaNYL citrate 100 MCG/2 ML VIAL ONE (15:48)
[2020-10-17] MEDS ORDERED: MIDAZOLAM HCL 1 MG/ML 2ML VIAL ONE (15:49)
--- NOTE | 2020-10-17 16:52 | Anesthesiology Consultation ---
Date of Service October 17, 2020 Assessment & Plan Chart Review Chart Review: Acceptable Risk for Surgery and Patient NOT seen in Pre Admission Testing Consults Requested none Proposed Anesthesia Risk / Benefits Reviewed With: PT / POA / Parent / Guardian, Accepts Plan and Informed Consent Obtained History Surgery Operation Date: 10/17/20 11:05 Proposed Procedures p Left Short Synthes Troch Fareed - Deo R Madhavi, Height/Weight Height: 6 ft 3 in Weight: 104 kg Allergies Allergy/AdvReac Type Severity Reaction Status Date / Time No Known Allergies Allergy Unverified 10/17/20 07:51 Medications Home Medications Medication Instructions Recorded Confirmed Last Taken acetaminophen 325 mg PO QID PRN 10/17/20 10/17/20 Unknown aspirin [Aspirin Low Dose] 81 mg PO DAILY 10/17/20 10/17/20 Unknown atorvastatin 40 mg PO HS 10/17/20 10/17/20 Unknown bisacodyl [Dulcolax (bisacodyl)] 10 mg TN DAILY 10/17/20 10/17/20 Unknown glimepiride [Amaryl] 1 mg PO DAILY 10/17/20 10/17/20 Unknown glucagon [Glucagon Emergency Kit] 1 mg IM DAILY PRN 10/17/20 10/17/20 Unknown haloperidol lactate 1 mg PO Q12 10/17/20 10/17/20 Unknown lisinopril 2.5 mg PO DAILY 10/17/20 10/17/20 Unknown magnesium hydroxide [Milk of 400 mg PO DAILY PRN 10/17/20 10/17/20 Unknown Magnesia] metformin 1,000 mg PO BID 10/17/20 10/17/20 Unknown xr-eal-RM-Cm-Da-clwuijq-lutein 1 tab PO DAILY 10/17/20 10/17/20 Unknown [Multivital] psyllium husk [Metamucil] 0.4 g PO DAILY PRN 10/17/20 10/17/20 Unknown scopolamine base 1 patch TRANSDERMAL Q3D 10/17/20 10/17/20 Unknown sertraline [Zoloft] 50 mg PO DAILY 10/17/20 10/17/20 Unknown sodium phosphates [Enema] 118 ml TN HS PRN 10/17/20 10/17/20 Unknown trazodone 50 mg PO HS 10/17/20 10/17/20 Unknown triamcinolone acetonide 1 applic TOPICAL DAILY 10/17/20 10/17/20 Unknown Active Medications Generic Name Dose Route Start Last Admin Trade Name Freq PRN Reason Stop Dose Admin Haloperidol Lactate 1 mg 10/17/20 10:45 10/17/20 12:40 Haloperidol 1 Mg/0.5 Ml Udp PO 11/16/20 10:44 1 mg Q12 KALEE Administration Lactated Ringer's 1,000 mls @ 100 mls/hr 10/17/20 09:50 10/17/20 10:36 Lr IV 11/16/20 09:49 100 mls/hr .Q10H KALEE Administration Insulin Aspart 0 units 10/17/20 12:00 10/17/20 13:48 Insulin Aspart 100 Units/Ml 3 Ml Pen SC 11/16/20 11:59 2 units Q6 KALEE Administration Protocol Lisinopril 2.5 mg 10/17/20 09:46 10/17/20 12:37 Lisinopril 2.5 Mg Tab PO 11/16/20 09:45 2.5 mg DAILY KALEE Administration Miscellaneous 1 ea 10/17/20 09:59 10/17/20 12:36 Remove Transderm-Scop Patch N/A 11/16/20 09:58 1 ea Q72H KALEE Administration Oxycodone HCl 10 mg 10/17/20 09:46 10/17/20 10:35 Oxycodone Hcl Ir 5 Mg Tab (Immediate Release) PO 10/31/20 09:45 10 mg Q4H PRN Administration SEVERE Pain (7,8,9,10) Scopolamine 1 mg 10/17/20 10:00 10/17/20 13:49 Scopolamine 1 Mg Tdsy TD 11/16/20 09:59 1 mg Q3D KALEE Administration Sertraline HCl 50 mg 10/17/20 09:46 10/17/20 12:37 Sertraline Hcl 50 Mg Tablet PO 11/16/20 09:45 50 mg DAILY KALEE Administration Triamcinolone Acetonide 1 appln 10/17/20 10:00 10/17/20 12:37 Triamcinolone Acet 0.1% Cr 15 Gm Tube TOP 11/16/20 09:59 Not Given DAILY KALEE NPO Date Last Intake of Fluids: 10/16/20 Last Intake of Fluids Comment: unknown time. npo since midnight. Date Last Intake of Solids: 10/16/20 Last Intake of Solids Comment: unknown time. npo since midnight. Past Medical History Medical History Acquired absence of left great toe Acquired absence of other left toe(s) Callus Diabetes mellitus with neuropathy Diabetic peripheral neuropathy Pain of left foot Exercise / Class Metabolic Activity IV < 2 Limit ADL/Bedbound Past Surgical History Surgical History Status post partial amputation of foot Left TMA Past Anesthesia History No Hx of Anesthesia Complications and No Family Hx of Anesthesia Complications History of PONV No Hx of PONV and No Hx of Motion Sickness Social History Smoking Status: Never smoker Do You Dip or Chew Tobacco: No Hx Alcohol Use: No Hx Substance Use: No Physical Exam Vital Signs Last Vital Signs Temp 37.1 C 10/17/20 15:30 Pulse 66 10/17/20 15:30 Resp 18 10/17/20 15:30 BP 140/81 10/17/20 15:30 Pulse Ox 96 10/17/20 15:30 ENMT Mouth: no dentition abnormality Thyromental Distance: > or= 3.5 Finger Breadths Mallampati Class: II Neck normal visual inspection Respiratory normal respiratory effort Auscultation: lungs clear to auscultation bilaterally Cardiovascular Rate/Rhythm: regular rate and regular rhythm Psychiatric Orientation: alert and cooperative; + not oriented x 3 Lab Results Anesthesia Preop Results Results Anesthesia Widget: WBC 5.66 K/uL (4.8-10.8) 10/17/20 Hgb 11.6 g/dL (14.0-18.0) L 10/17/20 Hct 33.8 % (42-52) L 10/17/20 Plt 223 K/uL (130-400) 10/17/20 Na 138 mmol/L (136-145) 10/17/20 K 4.0 mmol/L (3.5-5.1) 10/17/20 Cl 105 mmol/L (98-107) 10/17/20 CO2 31 mmol/L (21-32) 10/17/20 BUN 14 mg/dl (7-18) 10/17/20 Creat 1.04 mg/dl (0.6-1.4) 10/17/20 Glucose Level 157 mg/dl (70-99) H 10/17/20 POC Glucose 163 mg/dl (70-99) H 10/17/20 PT 11.9 Seconds (9.0-12.0) 10/17/20 PTT 26.3 Seconds (21.0-31.0) 10/17/20 INR 1.2 (0.9-1.1) H 10/17/20 Urine Color Yellow 10/17/20 Urine Appearance Clear (Clear) 10/17/20 Urine pH 8.0 (4.5-7.5) H 10/17/20 Urine Specific Sunset 1.013 (1.000-1.030) 10/17/20 Urine Protein Negative (Negative) 10/17/20 Urine Glucose (UA) Negative (Negative) 10/17/20 Urine Ketones Negative (Negative) 10/17/20 Urine Blood Negative (Negative) 10/17/20 Urine Nitrite Negative (Negative) 10/17/20 Urine Bilirubin Negative (Negative) 10/17/20 Urine Urobilinogen Negative (Negative) 10/17/20 Urine Leukocyte Esterase Negative (Negative) 10/17/20 COVID-19 PCR NEGATIVE (Negative) 10/17/20 Blood Type O Positive 10/17/20 Antibody Screen NEGATIVE 10/17/20 Testing Laboratory Results 10/17/20 05:43 10/17/20 05:43 PT 11.9 Seconds (9.0-12.0) 10/17/20 05:43 INR 1.2 (0.9-1.1) H 10/17/20 05:43 APTT 26.3 Seconds (21.0-31.0) 10/17/20 05:43 Urine Color Yellow 10/17/20 05:50 Urine Appearance Clear (Clear) 10/17/20 05:50 Urine pH 8.0 (4.5-7.5) H 10/17/20 05:50 Ur Specific Sunset 1.013 (1.000-1.030) 10/17/20 05:50 Urine Protein Negative (Negative) 10/17/20 05:50 Urine Glucose (UA) Negative (Negative) 10/17/20 05:50 Urine Ketones Negative (Negative) 10/17/20 05:50 Urine Nitrite Negative (Negative) 10/17/20 05:50 Ur Leukocyte Esterase Negative (Negative) 10/17/20 05:50 Blood Type O Positive 10/17/20 05:43 Antibody Screen NEGATIVE 10/17/20 05:43 10/17/20 12:09 POC Glucose 163 H
--- NOTE | 2020-10-17 16:52 | Orthopedic Consultation ---
Date of Consultation October 17, 2020 Assessment & Plan (1) Intertrochanteric fracture of left hip: Patient will require surgical fixation of left intertrochanteric hip fracture. Tentatively planning for surgery 10/18/2020. Nonweightbearing left lower extremity, n.p.o. after midnight, hold anticoagulation. Thank you for the consultation. History of Present Illness Reason for Consultation: Left intertrochanteric hip fracture Attending Physician: Ronald Vicente MD History of Present Illness The patient is a 65-year-old male with past medical history noted below presented to [facility] secondary to a mechanical fall from standing height. Patient is a poor historian secondary to underlying A lzheimer's dementia. He presented from a intermediate facility. Majority of the HPI was obtained from the chart. Allergies Allergy/AdvReac Type Severity Reaction Status Date / Time No Known Allergies Allergy Unverified 10/17/20 07:51 Home Medications Medication Instructions Recorded Confirmed Type acetaminophen 325 mg PO QID PRN 10/17/20 10/17/20 History aspirin [Aspirin Low Dose] 81 mg PO DAILY 10/17/20 10/17/20 History atorvastatin 40 mg PO HS 10/17/20 10/17/20 History bisacodyl [Dulcolax (bisacodyl)] 10 mg ND DAILY 10/17/20 10/17/20 History glimepiride [Amaryl] 1 mg PO DAILY 10/17/20 10/17/20 History glucagon [Glucagon Emergency Kit] 1 mg IM DAILY PRN 10/17/20 10/17/20 History haloperidol lactate 1 mg PO Q12 10/17/20 10/17/20 History lisinopril 2.5 mg PO DAILY 10/17/20 10/17/20 History magnesium hydroxide [Milk of 400 mg PO DAILY PRN 10/17/20 10/17/20 History Magnesia] metformin 1,000 mg PO BID 10/17/20 10/17/20 History jb-lup-ZI-Yl-Ae-peqsoov-lutein 1 tab PO DAILY 10/17/20 10/17/20 History [Multivital] psyllium husk [Metamucil] 0.4 g PO DAILY PRN 10/17/20 10/17/20 History scopolamine base 1 patch TRANSDERMAL Q3D 10/17/20 10/17/20 History sertraline [Zoloft] 50 mg PO DAILY 10/17/20 10/17/20 History sodium phosphates [Enema] 118 ml ND HS PRN 10/17/20 10/17/20 History trazodone 50 mg PO HS 10/17/20 10/17/20 History triamcinolone acetonide 1 applic TOPICAL DAILY 10/17/20 10/17/20 History Patient History Medical History Acquired absence of left great toe Acquired absence of other left toe(s) Callus Diabetes mellitus with neuropathy Diabetic peripheral neuropathy Pain of left foot Surgical History Status post partial amputation of foot Left TMA Social History Smoking Status: Never smoker Second Hand Exposure: No; Do You Dip or Chew Tobacco: No; Tobacco Cessation Education Requested by Patient: No Hx Alcohol Use: No Hx Substance Use: No Preferred Language: Macedonian Communication Ability: Effective Transmission And Coordination Engineer Required: No Beliefs That Will Affect Care: None Current Living Situation: [facility] Other Information That Helps Us Care for You: No Feels Safe at Home: Yes Safety Concerns: Feels Safe At This Time Assistive Devices: None Review of Systems Review of Systems: Unobtainable due to cognitive status Constitutional: as per Subjective / HPI Physical Exam Physical Exam: Left lower extremity is neurovascular sensory intact grossly, short and externally rotated, +2 dorsalis pedis pulse, compartment soft nontender, skin overlying left hip is clean dry and intact. Results & Data ([facility]) Vital Signs (Past 12 Hours) Vital Signs Temp Pulse Pulse Pulse Resp BP BP 10/17/20 15:30 37.1 C 66 18 140/81 10/17/20 09:45 36.8 C 69 18 160/80 H 10/17/20 09:30 36.8 C 69 18 160/80 H 10/17/20 09:14 36.8 C 66 18 141/78 H 10/17/20 09:00 36.8 C 70 14 141/78 H 10/17/20 08:30 63 16 146/76 H 10/17/20 08:01 61 13 10/17/20 08:00 59 L 16 141/76 H 06/30/21 07:30 63 12 128/74 10/17/20 07:00 66 12 138/78 10/17/20 06:49 62 12 135/75 10/17/20 06:48 64 20 135/75 10/17/20 05:01 36.7 C 69 17 151/95 H Pulse Ox 10/17/20 15:30 96 10/17/20 09:45 95 10/17/20 09:30 95 10/17/20 09:14 95 10/17/20 09:00 95 10/17/20 08:30 94 10/17/20 08:01 96 10/17/20 08:00 95 10/17/20 07:30 96 10/17/20 07:00 96 10/17/20 06:49 93 10/17/20 06:48 95 10/17/20 05:01 97
[2020-10-17] MEDS: CHECK SCOPOLAMINE PATCH PLACEMENT SCH ×2 (17:29→23:44)
[2020-10-17] MEDS: traZODone HCL 50 MG TAB PO SCH (20:44)
[2020-10-17] MEDS ORDERED: DOCUSATE SODIUM/SENNA 50/8.6MG TAB PO SCH (21:00)
[2020-10-18 06:36] LABS: Hematocrit (blood only) 30.6 % (42-52); Hemoglobin 10.3 g/dL (14.0-18.0); Mean Corpuscular Hemoglobin 30.2 pg (25-34); Mean Corpuscular Hgb Conc 33.7 g/dL (32-36); Mean Corpuscular Volume 89.7 fL (80-100); Mean Platelet Volume 9.6 fL (7.4-10.4); Platelet Count 209 K/uL (130-400); RDW Coefficient of Variation 12.8 % (11.5-14.5); RDW Standard Deviation 41.2 fL (36.4-46.3); Red Blood Count 3.41 M/uL (4.7-6.1); White Blood Count 6.91 K/uL (4.8-10.8)
[2020-10-18 07:12] LABS: Estimated Average Glucose 140 mg/dl; Hemoglobin A1C 6.5 % (4.5-5.6)
[2020-10-18 07:16] LABS: BUN Creatinine Ratio 18.7 (10-20); Calcium 8.4 mg/dl (8.5-10.1); Creatinine Clr Calc Pharmacy 106.1 ml/min; Est GFR (African American) 100.9 ml/min; Est GFR (Non-African American) 87.1 ml/min; Potassium 3.8 mmol/L (3.5-5.1)
[2020-10-18] MEDS: LACTATED RINGER'S 1,000 ML IV SCH ×2 (07:17→16:21)
[2020-10-18] MEDS: CEROVITE ADV FORMULA TAB PO SCH (07:17)
[2020-10-18] MEDS: HALOPERIDOL 1 MG/0.5 ML UDP PO SCH ×2 (07:17→20:35)
[2020-10-18] MEDS: SERTRALINE HCL 50 MG TABLET PO SCH (07:17)
[2020-10-18] MEDS: CHECK SCOPOLAMINE PATCH PLACEMENT SCH ×2 (07:17→16:21)
[2020-10-18] MEDS: lisinopril 2.5 MG TAB PO SCH (07:17)
[2020-10-18] MEDS: TRIAMCINOLONE ACET 0.1% CR 15 GM TUBE TOP SCH (07:18)
--- NOTE | 2020-10-18 08:06 | Orthopedic Progress Note ---
Date of Service October 18, 2020 Assessment & Plan (1) Intertrochanteric fracture of left hip: Is a displaced intertrochanteric hip fracture with subtrochanteric extension. This will require cephalomedullary nailing to reduce pain, prevent further displacement, and restore the ability to ambulate. Unfortunately, patient has Alzheimer's dementia and is unable to consent on his own. I attempted multiple times to contact the only listed family members, brothers Alexis Alvarado ([phone]) and Dallin Alvarado ([phone]). I was able to leave a voicemail on Alexis's phone; a second call also went to voicemail. I was unable to leave a voicemail on Dallin's phone, as his mailbox is full. We will try to continue reaching out to the family to obtain consent for surgical fixation of his hip fracture. Admission and Anticipated Discharge Date Admission Date: October 17, 2020 Subjective Patient resting comfortably. He is able to tell me that he fell, injuring his left hip. Denies severe pain currently. Physical Exam Physical Exam: Patient is disoriented to place and time. Left hip examined. No open wounds. Minimal swelling. Intact ankle dorsiflexion plantarflexion, and intact sensation in his remaining foot; he had previous toe amputations. Results & Data ([facility]) Vital Signs (Past 12 Hours) Vital Signs Temp Pulse Resp BP Pulse Ox Pulse Ox 10/18/20 07:12 36.8 C 58 L 16 136/75 95 10/18/20 01:00 95 10/17/20 22:52 36.9 C 57 L 18 134/73 94 10/17/20 21:00 95 Diagnostic Findings Left hip, pelvis, and femur films were reviewed. He has a mildly displaced intertrochanteric fracture, but with a nondisplaced fracture line extending down into the subtrochanteric region. (1) Intertrochanteric fracture of left hip Encounter type: initial encounter Fracture alignment: nondisplaced Fracture type: closed Qualified Code(s): S72.145A - Nondisplaced intertrochanteric fracture of left femur, initial encounter for closed fracture
[2020-10-18] MEDS: INSULIN ASPART 100 UNITS/ML 3 ML PEN SC SCH ×4 (08:47→20:43)
--- NOTE | 2020-10-18 08:54 | Orthopedic Progress Note ---
Date of Service October 18, 2020 Assessment & Plan (1) Intertrochanteric fracture of left hip: I was finally able to speak with the brother Dallin Alvarado ( , Office: [phone]), and verbal consent was obtained for a left hip cephalomedullary nailing for the intertrochanteric hip fracture. Risks, benefits, and alternatives of surgery were explained in detail. The surgical procedure, as well as postoperative recovery and rehabilitation, was also explained in detail. Risks include bleeding; infection; damage to surrounding structures such as nerves, blood vessels, and tendons that run in the area; persistent pain or stiffness; nonunion; malunion; hardware failure; painful p rominent hardware requiring removal; or need for further surgery. The patient's brother understands all of this and wishes to proceed with surgery. Preoperative workup was completed today, and informed consent was obtained. Note the phone number for Alexis in the chart is incorrect. Admission and Anticipated Discharge Date Admission Date: October 17, 2020 Results & Data ([facility]) Vital Signs (Past 12 Hours) Vital Signs Temp Pulse Resp BP Pulse Ox Pulse Ox 10/18/20 07:12 36.8 C 58 L 16 136/75 95 10/18/20 01:00 95 10/17/20 22:52 36.9 C 57 L 18 134/73 94 10/17/20 21:00 95 (1) Intertrochanteric fracture of left hip Encounter type: initial encounter Fracture alignment: nondisplaced Fracture type: closed Qualified Code(s): S72.145A - Nondisplaced intertrochanteric fracture of left femur, initial encounter for closed fracture
--- NOTE | 2020-10-18 08:57 | Pharmacy Report ---
Pharmacy Glycemic Short Note 2 - Date of Service October 18, 2020 - Glycemic Short BSG Results (Last 24 hours): 10/17/20 10/17/20 10/17/20 12:09 17:51 20:59 Glucose POC Glucose 163 H 148 H 165 H 10/18/20 10/18/20 05:52 05:57 Glucose 112 H POC Glucose 113 H OUTPATIENT ANTIDIABETIC REGIMEN: * Glimepiride 1 mg PO daily * Metformin 1000 mg PO BIDM * HbA1c = 6.5% (10/18/20) ASSESSMENT: 10/18: * Patient has Alzheimer's dementia and cannot consent to surgery on his own. Surgical team unable to obtain consent for surgery from family members up to this point. If consent is obtained, patient will likely go to the OR today. He remains NPO for that possibility. * Carlos received a total of 8 units of insulin yesterday, all bolus * BSGs acceptable: 163-148-165 mg/dL * Fasting BSG well controlled at 113 mg/dL this AM * No changes to Novolog at this time * Will adjust insulin postoperatively, especially if steroids are received * If surgery is cancelled again and patient is ordered a diet, then will likely need to adjust Novolog later today 10/17: * 65 yo M admitted secondary to a left hip fracture. Pharmacy has been consulted for assistance with inpatient glycemic management. * Patient is to go to the OR this afternoon and has been NPO since admission. * Started patient on Novolog based on a weight and stress of 2-3. * This may need tightened postoperatively. * Patient may require a dose of NPH postoperatively depending on whether a diet is ordered and if steroids were given. * Will follow-up this afternoon/evening. PLAN FOR INPATIENT GLYCEMIC CONTROL: * Hold outpatient oral diabetes medications * Basal insulin * None as of now. May require NPH postoperatively. * Bolus insulin * NovoLog per scale ACHS or Q6hrs while NPO * Goal Range: Low 110 mg/dL - High 140 mg/dL * Correction Factor: 20 mg/dL/unit * Nutritional / Prandial insulin per carb ratio of 1 unit per 7 grams CHO consumed PLAN FOR DISCHARGE: * HbA1c = 6.5% which is at goal for this patient. Recommend continuing Amaryl and Metformin upon discharge as long as patient is not experiencing any hypoglycemia.
[2020-10-18] MEDS ORDERED: PROPOFOL IV EMULSION 10 MG/ML 20 ML VIAL IV ONE ×2 (12:39→14:45)
[2020-10-18] MEDS ORDERED: DEXAMETHASONE SOD INJ 4 MG/ML VIAL ONE (12:39)
[2020-10-18] MEDS ORDERED: LIDOCAINE 2% 2 ML VIAL/AMP(20MG/ML) INFIL ONE (12:39)
[2020-10-18] MEDS ORDERED: ROCURONIUM BROMIDE 10 MG/ML 5 ML VIAL IV ONE (12:39)
[2020-10-18] MEDS ORDERED: ONDANSETRON INJ 2 MG/ML 2 ML VIAL ONE (12:39)
[2020-10-18] MEDS ORDERED: fentaNYL citrate 100 MCG/2 ML VIAL ONE (12:39)
[2020-10-18] MEDS ORDERED: MIDAZOLAM HCL 1 MG/ML 2ML VIAL ONE (12:42)
[2020-10-18] MEDS ORDERED: KETAMINE 50 MG/5 ML SYRINGE ONE (12:43)
[2020-10-18] MEDS ORDERED: BUPIVACAINE 0.5 % 5 MG/1 ML PF 10ML VIAL ONE (13:26)
--- NOTE | 2020-10-18 13:47 | Electrocardiogram Report ---
Test Reason : Blood Pressure : / mmHG Vent. Rate : 067 BPM Atrial Rate : 067 BPM P-R Int : 206 ms QRS Dur : 088 ms QT Int : 406 ms P-R-T Axes : 043 036 053 degrees QTc Int : 429 ms Poor data quality, interpretation may be adversely affected Normal sinus rhythm Low voltage QRS Borderline ECG When compared with ECG of 19-JUL-2015 17:09, No significant change was found Confirmed by Roberto Juan ([id number]) on 10/18/2020 1:47:04 PM Referred By: REFERRED SELF Confirmed By:Roberto Juan
--- NOTE | 2020-10-18 14:49 | Fluoroscopy Report ---
FL hip LT 2-3V CLINICAL HISTORY: LEFT TROCHNAIL COMPARISON STUDY: Pelvis and left femur radiographs October 17, 2020. FLUOROSCOPY TIME: 1 minute and 27 seconds. FLUOROSCOPIC IMAGES: 4 FINDINGS: Fluoroscopy was provided during internal fixation of the intertrochanteric fracture of the left femur with trochanteric nail and intramedullary zunilda. Distal screw is present. Fracture alignment appears anatomic. There are no unexpected radiopaque foreign bodies. IMPRESSION: Fluoroscopy provided during internal fixation of the intertrochanteric fracture of the l eft femur. ACT 112: Negative or not required by law. Electronically signed by: Luis Potter M.D. 10/18/2020 2:47 PM
--- NOTE | 2020-10-18 14:54 | Post Operative Brief Note ---
Immediate Post Op Note v1 Date of Surgery October 18, 2020 Pre & Post Diagnosis Operation Date: 10/18/20 11:35 Pre-Op Diagnosis: Left hip intertrochanteric femur fracture with subtrochanteric extension Post-Op Diagnosis: Left hip intertrochanteric femur fracture with subtrochanteric extension I identified the patient and participated in the time-out.: Yes Procedure Operation Date: 10/18/20 11:35 Actual Procedures Left hip long cephalomedullary nailing - Nestor Gates M.D. Surgeon Nestor Gates Surg Nurse Rommel Pastor PA-C Estimated Blood Loss 50 Findings Consistent with Post-Op Diagnosis
--- NOTE | 2020-10-18 14:59 | Operative Report ---
Post Operative Report Pre & Post Diagnosis Operation Date: 10/18/20 11:35 Pre-Op Diagnosis: Left hip intertrochanteric femur fracture with subtrochanteric extension Post-Op Diagnosis: Left hip intertrochanteric femur fracture with subtrochanteric extension I identified the patient and participated in the time-out.: Yes Procedure Operation Date: 10/18/20 11:35 Actual Procedures Left hip long cephalomedullary nailing of intertrochanteric femur fracture with subtrochanteric extension ([id number]) - Nestor Gates M.D. Surgeon Nestor Gates Screen Room Operator Rommel Pastor PA-C Estimated Blood Loss 50 Findings Consistent with Post-Op Diagnosis Specimens None Drains None Anesthesia Type General Complications none Disposition Disposition: Recovery Room Indications Mr. Alvarado is a 65-year-old male with Alzheimer's dementia who had a ground-level fall and injured his left hip. History, clinical exam, and imaging were consistent with the above diagnosis. Risks, benefits, and alternatives of surgery were explained in detail. The patient understood all this and wished to proceed. Description of Procedure Implants: Synthes Long ([id number]) 130 degree Trochanteric Fixation Nail, 11mm helical blade, 5mm distal locking screw Patient was identified in the preoperative holding area. Operative extremity was marked. Patient was then brought back to the operating room, and a spinal blockade was given by the anesthesia staff. MAC anesthesia was then induced without complication. Appropriate weight-based dose of Ancef was infused i ntravenously for antibiotic prophylaxis. Patient was then positioned on the fracture table with the traction apparatus. The nonoperative hip was flexed and placed into the well leg humphrey. Longitudinal traction was applied to the operative hip. Fracture reduction was then performed under fluoroscopic imaging. Once acceptable reduction had been achieved, the left hip was then prepped and draped in a standard sterile fashion using Chlorhexidine prep. I first made an incision just proximal to the greater trochanter in line with the femoral shaft axis, and split the fibers of the iliotibial band. I then bluntly palpated down to the greater trochanter and inserted the guidewire down to the tip of the greater trochanter. It was appropriately positioned on AP and lateral images, and then driven into the proximal femur. I then inserted the soft tissue protector down to the tip of the greater trochanter and then passed the entry reamer over top of the guidewire. It was advanced down towards the lesser trochanter to open the proximal femur. I then inserted a ball-tipped guidewire down the femoral shaft towards the knee. Once it was in appropriate position, an appropriate length nail was selected. The femoral canal was then sequentially reamed up to 12.5 mm diameter to allow passage of an 11 mm diameter nail. The Synthes long TFN was then attached to the targeting arm and inserted into the proximal femur. I malleted it down to an appropriate depth for proper trajectory of the helical blade into the femoral head. Once the nail was at an appropriate depth, I then attached the targeting guide for the helical blade onto the targeting arm. Incision was made in line with the guide through the skin and iliotibial band. The guide sleeve was placed against the lateral cortex of the femur. Guidewire was then inserted through the guide and up into the femoral neck and head. I verified proper placement and trajectory under both AP and lateral images. I advanced the guidewire to the subchondral bone in the femoral head and verified proper depth on orthogonal images. I then measured the depth off of the guidewire. The drill for the helical blade was then set at an appropriate level to match the measured length. The drill was then advanced to the set depth. An appropriate length helical blade was selected and malleted into place over the guidewire. I then deployed the set screw proximally to prevent rotation of the helical blade during fracture compression. The proximal targeting arm was then removed. I then proceeded with distal locking screw insertion at the knee. "Perfect circles" was achieved with fluoroscopy for targeting of the distal static locking screw hole through the distal end of the nail. Both cortices of the femur were drilled through this distal locking hole. An appropriate length distal locking screw was selected and inserted. Final fluoroscopic images were then obtained to ensure proper hardware placement, screw length, and fracture reduction. The wounds were then copiously irrigated with sterile saline. I then closed the iliotibial band and deep dermal tissue with #0 Vicryl suture. Subcutaneous tissues closed with 3-0 Vicryl suture, and skin was closed with lisset. Sterile dressings were then applied with Xeroform, sterile gauze, and foam tape. Drapes were then removed and traction apparatus was disconnected. The patient was awakened from general anesthesia, transferred over to the stretcher, and taken to the Post Anesthesia Care Unit in stable condition. There were no immediate complications from the procedure. I was present and scrubbed for the entire procedure. Due to the complex nature of the procedure, the entire surgery was performed with the operational assistance of Rommel Pastor PA-C. The lpn medical assistant, under direct supervision, was involved in the performance of all aspects of the surgical procedure including patient positioning, tissue retraction, hemostasis, wound closure, and dressing application. I attest to the content of the Intraoperative Record and any orders documented therein. Any exceptions are noted below.
[2020-10-18] MEDS ORDERED: METOCLOPRAMIDE HCL INJ 5 MG/ML 2 ML VIAL IV PRN (15:41)
[2020-10-18] MEDS ORDERED: bisacodyL 10 MG SUPP PR PRN (15:41)
[2020-10-18] MEDS ORDERED: ONDANSETRON INJ 2 MG/ML 2 ML VIAL IV PRN (15:41)
[2020-10-18] MEDS ORDERED: SODIUM CHLORIDE 0.9% 1000ML 1,000 ML IV SCH (15:41)
[2020-10-18] MEDS ORDERED: NALOXONE HCL 0.4 MG/1 ML VIAL/CARP IV PRN (15:41)
[2020-10-18] MEDS ORDERED: MAGNESIUM HYDROXIDE SUSP 30 ML UDC PO PRN (15:41)
--- NOTE | 2020-10-18 19:12 | Hospitalist Progress Note ---
Date of Service October 18, 2020 Assessment & Plan (1) Intertrochanteric fracture of left hip: Patient mechanical fall with a left intertrochanteric hip fracture. He has no cardiovascular symptoms upon interview he is lying flat in the bed his EKG shows relative bradycardia with low voltage but no concerning ST or T wave changes chest x-ray is unremarkable laboratories are in good condition he does have some preoperative anemia he is medically optimized proceed to surgery 10/18/20 Left Short Troch Nailing, Surgeon: Nestor Gates (2) Alzheimers disease: Patient remains on trazodone and Zoloft (3) Diabetes mellitus with neuropathy: Patient placed on insulin sliding scale continue lisinopril for reduction of nephropathy from diabetes Admission and Anticipated Discharge Date Admission Date: October 17, 2020 Subjective Patient resting comfortably. He is able to tell me that he fell, injuring his left hip. Denies severe pain currently. reportedly did have consent from brother to have hip repaired Review of Systems Review of Systems: Mild distress and fatigue no headache, no visual changes no speech or swallowing issues no chest pain, pressure or palpitations no shortness of breath, cough or wheezes no abdominal pain, nausea or vomiting, diarrhea or constipation no dysuria, hematuria or frequency Left hip pain and movement no back pain, CVA tenderness or radicular pain no bruising, bleeding or rashes no focal signs of weakness does have peripheral neuropathy no complaints of anxiety or depression.. Physical Exam Physical Exam: The patient appeared conically ill Vital signs as documented. Head exam is normocephalic atraumatic Neck is without JVD, thyromegaly, or carotid bruits. Lungs are clear to auscultation, no focal loss of breath sounds Cardiac exam, Rhythm is regular.. No murmurs, rubs or gallops. Abdominal exam reveals normal bowel sounds, soft non tender, no masses Left lower leg is shortened and externally rotated painful to move distal pulses are weak but intact he is missing all the toes of his left foot Neurologic exam is alert and oriented x2, no focal loss of strength peripheral neuropathy Skin is with peripheral changes of chronic venous stasis Psychologically is without concerns for anxiety or depression Results & Data Results & Data ([facility]) Vital Signs (Past 12 Hours) Vital Signs Temp Pulse Pulse Resp BP BP Pulse Ox 10/18/20 18:32 98.6 F 57 L 16 139/85 95 10/18/20 17:34 98.1 F 58 L 16 129/75 99 10/18/20 16:31 97.9 F 58 L 16 138/80 97 10/18/20 16:03 97.9 F 57 L 16 142/76 H 99 10/18/20 15:43 98.2 F 60 16 135/83 97 10/18/20 15:30 60 14 128/70 99 10/18/20 15:20 97.3 F L 58 L 14 136/70 99 10/18/20 15:10 59 L 14 131/65 99 10/18/20 15:00 61 14 125/71 99 10/18/20 14:56 97.7 F 60 18 121/69 99 10/18/20 12:25 98.8 F 53 L 16 138/69 96 10/18/20 07:12 98.2 F 58 L 16 136/75 95 PG Care Time/CCT Total # of Minutes Spent Total Time Spent with Patient: Total time spent is greater than 50% in coordination of care (as documented) at patient's floor/unit and/or counseling patient: Coding Level of Care Code 96025 Subseq Hosp Care Lvl 2 Diagnoses Intertrochanteric fracture of left hip S72.145A Encounter type: initial encounter Fracture alignment: nondisplaced Fracture type: closed Alzheimers disease G30.9; F02.80 Diabetes mellitus with neuropathy E11.40 (1) Intertrochanteric fracture of left hip Encounter type: initial encounter Fracture alignment: nondisplaced Fracture type: closed Qualified Code(s): S72.145A - Nondisplaced intertrochanteric fracture of left femur, initial encounter for closed fracture
[2020-10-18] MEDS: traZODone HCL 50 MG TAB PO SCH (20:34)
[2020-10-18] MEDS: DOCUSATE SODIUM 100 MG CAP PO SCH (20:35)
[2020-10-18] MEDS: SENNA 8.6 MG TAB PO SCH (20:35)
[2020-10-18] MEDS: ceFAZolin 2000MG 2,000 MG/15 ML SYR IV SCH (20:37)
[2020-10-19] MEDS: CHECK SCOPOLAMINE PATCH PLACEMENT SCH ×4 (00:32→23:51)
[2020-10-19] MEDS: INSULIN ASPART 100 UNITS/ML 3 ML PEN SC SCH ×6 (00:32→21:12)
[2020-10-19] MEDS: LACTATED RINGER'S 1,000 ML IV SCH ×2 (00:54→11:27)
[2020-10-19] MEDS: oxyCODONE HCL IR 5 MG TAB (IMMEDIATE RELEASE) PO PRN (04:07)
[2020-10-19] MEDS: ceFAZolin 2000MG 2,000 MG/15 ML SYR IV SCH (04:08)
--- NOTE | 2020-10-19 06:44 | Anesthesiology Progress Note ---
Date of Service October 19, 2020 Anesthesia Post Procedure Vital Signs Vital Signs: Temp Pulse Pulse Resp BP BP Pulse Ox 10/19/20 04:03 36.6 C 64 16 168/77 H 96 10/18/20 22:40 36.8 C 62 16 109/66 94 10/18/20 21:00 10/18/20 18:32 37 C 57 L 16 139/85 95 10/18/20 17:34 36.7 C 58 L 16 129/75 99 10/18/20 16:31 36.6 C 58 L 16 138/80 97 10/18/20 16:03 36.6 C 57 L 16 142/76 H 99 10/18/20 15:43 36.8 C 60 16 135/83 97 10/18/20 15:30 60 14 128/70 99 10/18/20 15:20 36.3 C L 58 L 14 136/70 99 10/18/20 15:10 59 L 14 131/65 99 10/18/20 15:00 61 14 125/71 99 10/18/20 14:56 36.5 C 60 18 121/69 99 10/18/20 12:25 37.1 C 53 L 16 138/69 96 10/18/20 07:12 36.8 C 58 L 16 136/75 95 Pulse Ox 10/19/20 04:03 10/18/20 22:40 10/18/20 21:00 95 10/18/20 18:32 10/18/20 17:34 10/18/20 16:31 10/18/20 16:03 10/18/20 15:43 10/18/20 15:30 10/18/20 15:20 10/18/20 15:10 10/18/20 15:00 10/18/20 14:56 10/18/20 12:25 10/18/20 07:12 Transfer of Care Handoff Completed per policy Notes Mental Status: alert / awake / arousable and participated in evaluation Patient Amnestic to Procedure: Yes Nausea / Vomiting: adequately controlled Pain: adequately controlled Airway Patency, RR, SpO2: stable & adequate BP & HR: stable & adequate Hydration State: stable & adequate Anesthetic Complications: no major complications apparent
[2020-10-19] MEDS: SERTRALINE HCL 50 MG TABLET PO SCH (07:28)
[2020-10-19] MEDS: CEROVITE ADV FORMULA TAB PO SCH (07:28)
[2020-10-19] MEDS: HALOPERIDOL 1 MG/0.5 ML UDP PO SCH ×2 (07:28→20:44)
[2020-10-19] MEDS: DOCUSATE SODIUM 100 MG CAP PO SCH ×2 (07:28→20:44)
[2020-10-19] MEDS: lisinopril 2.5 MG TAB PO SCH (07:28)
[2020-10-19] MEDS: TRIAMCINOLONE ACET 0.1% CR 15 GM TUBE TOP SCH (07:29)
--- NOTE | 2020-10-19 08:28 | Orthopedic Progress Note ---
Date of Service October 19, 2020 Assessment & Plan (1) Intertrochanteric fracture of left hip: Admission and Anticipated Discharge Date Admission Date: October 17, 2020 65 yo male stable POD #1 s/p left hip long troch nail 1. Med management 2. DVT prophylaxis- ASA, SCDs 3. PT/OT 4. D/C planning- return to SNF when stable per medicine Subjective Pt resting in bed, pain controlled, denies complaints Physical Exam Physical Exam: Left LE N/V/I, dressings in place, thigh soft Results & Data ([facility]) Vital Signs (Past 12 Hours) Vital Signs Temp Pulse Resp BP Pulse Ox Pulse Ox 10/19/20 07:17 36.3 C L 63 16 139/77 94 10/19/20 04:03 36.6 C 64 16 168/77 H 96 10/18/20 22:40 36.8 C 62 16 109/66 94 10/18/20 21:00 95 (1) Intertrochanteric fracture of left hip Encounter type: initial encounter Fracture alignment: nondisplaced Fracture type: closed Qualified Code(s): S72.145A - Nondisplaced intertrochanteric fracture of left femur, initial encounter for closed fracture
[2020-10-19 08:37] LABS: Hemoglobin 10.3 g/dL (14.0-18.0); Mean Corpuscular Hemoglobin 30.5 pg (25-34); Mean Corpuscular Hgb Conc 34.3 g/dL (32-36); Mean Corpuscular Volume 88.8 fL (80-100); Mean Platelet Volume 9.5 fL (7.4-10.4); Platelet Count 217 K/uL (130-400); RDW Coefficient of Variation 12.6 % (11.5-14.5); RDW Standard Deviation 40.7 fL (36.4-46.3); Red Blood Count 3.38 M/uL (4.7-6.1); White Blood Count 8.72 K/uL (4.8-10.8)
[2020-10-19] MEDS ORDERED: MULTIVITAMIN TAB PO SCH (09:00)
[2020-10-19] MEDS: ASPIRIN 325 MG ECTAB PO SCH (09:10)
[2020-10-19 09:12] LABS: BUN Creatinine Ratio 18.8 (10-20); Calcium 8.5 mg/dl (8.5-10.1); Creatinine Clr Calc Pharmacy 97.7 ml/min; Est GFR (African American) 91.3 ml/min; Est GFR (Non-African American) 78.8 ml/min; Potassium 3.8 mmol/L (3.5-5.1)
--- NOTE | 2020-10-19 12:15 | Pharmacy Report ---
Pharmacy Glycemic Short Note 2 - Date of Service October 19, 2020 - Glycemic Short BSG Results (Last 24 hours): 10/18/20 10/18/20 10/19/20 17:03 20:31 00:18 Glucose POC Glucose 129 H 190 H 137 H 10/19/20 10/19/20 10/19/20 03:59 08:01 08:09 Glucose 114 H POC Glucose 118 H 126 H 10/19/20 12:06 Glucose POC Glucose 158 H OUTPATIENT ANTIDIABETIC REGIMEN: * Glimepiride 1 mg PO daily * Metformin 1000 mg PO BIDM * HbA1c = 6.5% (10/18/20) ASSESSMENT: 10/19: * Patient is POD #1 s/p left short troch nailing - appears to have received IV dexamethasone intraoperatively * BSGs yesterday of 113, 107, 129, and 190 mg/dL * Renal function appears to be at/near baseline (SCr: 1.01 mg/dL) * will restart metformin today and loosen Novolog 10/18: * Patient has Alzheimer's dementia and cannot consent to surgery on his own. Surgical team unable to obtain consent for surgery from family members up to this point. If consent is obtained, patient will likely go to the OR today. He remains NPO for that possibility. * Carlos received a total of 8 units of insulin yesterday, all bolus * BSGs acceptable: 163-148-165 mg/dL * Fasting BSG well controlled at 113 mg/dL this AM * No changes to Novolog at this time * Will adjust insulin postoperatively, especially if steroids are received * If surgery is cancelled again and patient is ordered a diet, then will likely need to adjust Novolog later today 10/17: * 65 yo M admitted secondary to a left hip fracture. Pharmacy has been consulted for assistance with inpatient glycemic management. * Patient is to go to the OR this afternoon and has been NPO since admission. * Started patient on Novolog based on a weight and stress of 2-3. * This may need tightened postoperatively. * Patient may require a dose of NPH postoperatively depending on whether a diet is ordered and if steroids were given. * Will follow-up this afternoon/evening. PLAN FOR INPATIENT GLYCEMIC CONTROL: * Initiate home metformin 1000 mg PO BIDM * Basal insulin * Hold * Bolus insulin - loosen with initiation of metformin * NovoLog per scale ACHS or Q6hrs while NPO * Goal Range: Low 110 mg/dL - High 140 mg/dL * Correction Factor: 25 mg/dL/unit * Nutritional / Prandial insulin per carb ratio of 1 unit per 8 grams CHO consumed PLAN FOR DISCHARGE: * HbA1c = 6.5% which is at goal for this patient. Recommend continuing Amaryl and Metformin upon discharge as long as patient is not experiencing any hypoglycemia.
--- NOTE | 2020-10-19 16:51 | Hospitalist Progress Note ---
Date of Service October 19, 2020 Assessment & Plan (1) Intertrochanteric fracture of left hip: Patient mechanical fall with a left intertrochanteric hip fracture. He has no cardiovascular symptoms upon interview he is lying flat in the bed his EKG shows relative bradycardia with low voltage but no concerning ST or T wave changes chest x-ray is unremarkable laboratories are in good condition he does have some preoperative anemia he is medically optimized proceed to surgery 10/18/20 Left Short Troch Nailing, Surgeon: Nestor Gates (2) Alzheimers disease: Patient remains on trazodone and Zoloft (3) Diabetes mellitus with neuropathy: Patient placed on insulin sliding scale continue lisinopril for reduction of nephropathy from diabetes (4) DVT prophylaxis: ortho has chosen full dose aspirin as DVT prevention Admission and Anticipated Discharge Date Admission Date: October 17, 2020 Subjective Pt resting in bed, pain controlled, denies complaints, pt is of few words usually yes and no Review of Systems Review of Systems: Mild distress and fatigue no headache, no visual changes no speech or swallowing issues no chest pain, pressure or palpitations no shortness of breath, cough or wheezes no abdominal pain, nausea or vomiting, diarrhea or constipation no dysuria, hematuria or frequency Left hip pain tender to exam has increased movement no back pain, CVA tenderness or radicular pain no bruising, bleeding or rashes no focal signs of weakness does have peripheral neuropathy no complaints of anxiety or depression.. Physical Exam Physical Exam: The patient appeared conically ill Vital signs as documented. Head exam is normocephalic atraumatic Neck is without JVD, thyromegaly, or carotid bruits. Lungs are clear to auscultation, no focal loss of breath sounds Cardiac exam, Rhythm is regular.. No murmurs, rubs or gallops. Abdominal exam reveals normal bowel sounds, soft non tender, no masses Left lower leg with tenderness at operative site is flexing it Neurologic exam is alert and oriented x2, no focal loss of strength peripheral neuropathy Skin is with peripheral changes of chronic venous stasis Psychologically is without concerns for anxiety or depression Results & Data Results & Data ([facility]) Vital Signs (Past 12 Hours) Vital Signs Temp Pulse Resp BP Pulse Ox 10/19/20 11:19 97.9 F 60 16 115/67 92 10/19/20 07:17 97.3 F L 63 16 139/77 94 PG Care Time/CCT Total # of Minutes Spent Total Time Spent with Patient: Total time spent is greater than 50% in coordination of care (as documented) at patient's floor/unit and/or counseling patient: Coding Level of Care Code 58820 Subseq Hosp Care Lvl 2 Diagnoses Intertrochanteric fracture of left hip S72.145A Encounter type: initial encounter Fracture alignment: nondisplaced Fracture type: closed Alzheimers disease G30.9; F02.80 Diabetes mellitus with neuropathy E11.40 DVT prophylaxis Z29.9 (1) Intertrochanteric fracture of left hip Encounter type: initial encounter Fracture alignment: nondisplaced Fracture type: closed Qualified Code(s): S72.145A - Nondisplaced intertrochanteric fracture of left femur, initial encounter for closed fracture
[2020-10-19] MEDS ORDERED: metFORMIN HCL 500 MG TAB PO SCH (17:00)
[2020-10-19] MEDS: SENNA 8.6 MG TAB PO SCH (20:44)
[2020-10-19] MEDS: traZODone HCL 50 MG TAB PO SCH (20:44)
--- NOTE | 2020-10-20 06:59 | Orthopedic Progress Note ---
Date of Service October 20, 2020 Assessment & Plan (1) Intertrochanteric fracture of left hip: Postop day #2 status post left hip long trochanteric nailing. PT/OT when the patient is able to participate. DVT prophylaxisaspirin 325 mg, SHELLEY stockings. Toe-touch weightbearing on the left lower extremity. Discharge planning patient had been living in a nursing facility so will probably return when he is medically stable. Admission and Anticipated Discharge Date Admission Date: October 17, 2020 Supervising Physician Co-Signing Physician Notes Patient seen and examined. Agree with MEDHAT Rondey's note as above. Postoperative day 2 status post left hip long cephalomedullary nailing for intertrochanteric/subtrochanteric femur fracture. Reports mild discomfort in the hip with movement only. Toe-touch weightbearing on the left lower extremity. Subjective Denies pain in the left hip. When asked how the hip feels he states that is fine. No other history given today. Physical Exam Constitutional: no acute distress Lying in bed. He appears to be comfortable. Musculoskeletal: Hip: + surgical incision (Left hip dressing is C/D/I. Left thigh is soft.); no skin erythema and no ecchymosis Skin: no rashes, warm and dry Trauma: no evidence of skin trauma Psychiatric: Orientation: alert Results & Data ([facility]) Vital Signs (Past 12 Hours) Vital Signs Temp Pulse Resp BP Pulse Ox 10/20/20 00:19 37.1 C 67 16 121/68 90 (1) Intertrochanteric fracture of left hip Encounter type: initial encounter Fracture alignment: nondisplaced Fracture type: closed Qualified Code(s): S72.145A - Nondisplaced intertrochanteric fracture of left femur, initial encounter for closed fracture
[2020-10-20 07:46] LABS: Hematocrit (blood only) 28.3 % (42-52); Hemoglobin 9.7 g/dL (14.0-18.0); Mean Corpuscular Hemoglobin 30.9 pg (25-34); Mean Corpuscular Hgb Conc 34.3 g/dL (32-36); Mean Corpuscular Volume 90.1 fL (80-100); Mean Platelet Volume 9.7 fL (7.4-10.4); Platelet Count 211 K/uL (130-400); RDW Coefficient of Variation 12.8 % (11.5-14.5); RDW Standard Deviation 42.1 fL (36.4-46.3); Red Blood Count 3.14 M/uL (4.7-6.1); White Blood Count 8.53 K/uL (4.8-10.8)
[2020-10-20 08:03] LABS: BUN Creatinine Ratio 22.2 (10-20); Calcium 8.5 mg/dl (8.5-10.1); Creatinine Clr Calc Pharmacy 98.7 ml/min; Est GFR (African American) 92.4 ml/min; Est GFR (Non-African American) 79.7 ml/min; Potassium 4.1 mmol/L (3.5-5.1)
[2020-10-20] MEDS: TRIAMCINOLONE ACET 0.1% CR 15 GM TUBE TOP SCH (08:32)
[2020-10-20] MEDS: CHECK SCOPOLAMINE PATCH PLACEMENT SCH ×3 (08:32→23:45)
[2020-10-20] MEDS: HALOPERIDOL 1 MG/0.5 ML UDP PO SCH ×2 (08:33→21:57)
[2020-10-20] MEDS: DOCUSATE SODIUM 100 MG CAP PO SCH ×2 (08:33→21:57)
[2020-10-20] MEDS: ASPIRIN 325 MG ECTAB PO SCH (08:33)
[2020-10-20] MEDS: SERTRALINE HCL 50 MG TABLET PO SCH (08:34)
[2020-10-20] MEDS: CEROVITE ADV FORMULA TAB PO SCH (08:34)
[2020-10-20] MEDS: INSULIN ASPART 100 UNITS/ML 3 ML PEN SC SCH ×4 (08:34→21:59)
[2020-10-20] MEDS: SCOPOLAMINE 1 MG TDSY TD SCH (08:37)
--- NOTE | 2020-10-20 15:23 | Hospitalist Progress Note ---
Date of Service October 20, 2020 Assessment & Plan (1) Intertrochanteric fracture of left hip: Patient mechanical fall with a left intertrochanteric hip fracture. He has no cardiovascular symptoms upon interview he is lying flat in the bed his EKG shows relative bradycardia with low voltage but no concerning ST or T wave changes chest x-ray is unremarkable laboratories are in good condition he does have some preoperative anemia he is medically optimized proceed to surgery pt is with poor performance but still may go back to snf 10/18/20 Left Short Troch Nailing, Surgeon: Nestor Gates (2) Alzheimers disease: Patient remains on trazodone and Zoloft (3) Diabetes mellitus with neuropathy: Patient placed on insulin sliding scale continue lisinopril for reduction of nephropathy from diabetes (4) DVT prophylaxis: ortho has chosen full dose aspirin as DVT prevention Admission and Anticipated Discharge Date Admission Date: October 17, 2020 Subjective does have some pain in the left hip. When asked how the hip feels he states that is fine. No other history given today. Review of Systems Review of Systems: Mild distress and fatigue no headache, no visual changes no speech or swallowing issues no chest pain, pressure or palpitations no shortness of breath, cough or wheezes no abdominal pain, nausea or vomiting, diarrhea or constipation no dysuria, hematuria or frequency Left hip pain tender to exam has increased movement no back pain, CVA tenderness or radicular pain no bruising, bleeding or rashes no focal signs of weakness does have peripheral neuropathy no complaints of anxiety or depression.. Physical Exam Physical Exam: The patient appeared conically ill Vital signs as documented. Head exam is normocephalic atraumatic Neck is without JVD, thyromegaly, or carotid bruits. Lungs are clear to auscultation, no focal loss of breath sounds Cardiac exam, Rhythm is regular.. No murmurs, rubs or gallops. Abdominal exam reveals normal bowel sounds, soft non tender, no masses Left lower leg with tenderness at operative site is flexing it Neurologic exam is alert and oriented x2, no focal loss of strength peripheral neuropathy Skin is with peripheral changes of chronic venous stasis Psychologically is without concerns for anxiety or depression Results & Data Results & Data ([facility]) Vital Signs (Past 12 Hours) Vital Signs Temp Pulse Resp BP Pulse Ox 10/20/20 15:09 98.2 F 83 18 138/78 96 10/20/20 10:21 98 10/20/20 08:00 97.5 F L 64 18 117/73 97 PG Care Time/CCT Total # of Minutes Spent Total Time Spent with Patient: Total time spent is greater than 50% in coordination of care (as documented) at patient's floor/unit and/or counseling patient: Coding Level of Care Code 80410 Subseq Hosp Care Lvl 2 Diagnoses Intertrochanteric fracture of left hip S72.145A Encounter type: initial encounter Fracture alignment: nondisplaced Fracture type: closed Alzheimers disease G30.9; F02.80 Diabetes mellitus with neuropathy E11.40 DVT prophylaxis Z29.9 (1) Intertrochanteric fracture of left hip Encounter type: initial encounter Fracture alignment: nondisplaced Fracture type: closed Qualified Code(s): S72.145A - Nondisplaced intertrochanteric fracture of left femur, initial encounter for closed fracture
[2020-10-20] MEDS: traZODone HCL 50 MG TAB PO SCH (21:57)
[2020-10-20] MEDS: SENNA 8.6 MG TAB PO SCH (21:57)
[2020-10-21 07:36] LABS: Hematocrit (blood only) 27.7 % (42-52); Hemoglobin 9.2 g/dL (14.0-18.0); Mean Corpuscular Hemoglobin 30.7 pg (25-34); Mean Corpuscular Hgb Conc 33.2 g/dL (32-36); Mean Corpuscular Volume 92.3 fL (80-100); Mean Platelet Volume 9.6 fL (7.4-10.4); Platelet Count 206 K/uL (130-400); RDW Coefficient of Variation 12.9 % (11.5-14.5); RDW Standard Deviation 44.1 fL (36.4-46.3); White Blood Count 6.14 K/uL (4.8-10.8)
[2020-10-21 08:03] LABS: BUN Creatinine Ratio 22.4 (10-20); Calcium 8.4 mg/dl (8.5-10.1); Creatinine Clr Calc Pharmacy 118.9 ml/min; Est GFR (African American) 108.5 ml/min; Est GFR (Non-African American) 93.6 ml/min; Potassium 3.7 mmol/L (3.5-5.1)
--- NOTE | 2020-10-21 08:12 | Orthopedic Progress Note ---
Date of Service October 21, 2020 Assessment & Plan (1) Intertrochanteric fracture of left hip: Postop day #3 status post left hip long trochanteric nailing. PT/OT when the patient is able to participate. DVT prophylaxisaspirin 325 mg, SHELLEY stockings. Toe-touch weightbearing on the left lower extremity. Discharge planning patient had been living in a nursing facility so will probably return when he is medically stable. Ortho will sign off at this time. He will follow up in approximately 2 weeks postop for staple removal and x-rays. Admission and Anticipated Discharge Date Admission Date: October 17, 2020 Supervising Physician Co-Signing Physician Notes Patient seen and examined. Agree with MEDHAT Rodney's note as above. Patient reports that his pain in his left hip is decreasing. Remain toe-touch weightbearing on the left hip. Follow-up in my clinic 10 to 14 days after surgery. Please call [facility] at [phone] to make an appointment. Subjective Patient was sleeping throughout exam. No history given today. Physical Exam Constitutional: no acute distress Musculoskeletal: Hip: + surgical incision (Left hip dressing is C/D/I. Left thigh is soft.); no skin erythema and no ecchymosis Skin: no rashes, warm and dry Trauma: no evidence of skin trauma Results & Data ([facility]) Vital Signs (Past 12 Hours) Vital Signs Temp Pulse Resp BP Pulse Ox 10/20/20 23:26 36.1 C L 68 16 133/83 96 (1) Intertrochanteric fracture of left hip Encounter type: initial encounter Fracture alignment: nondisplaced Fracture type: closed Qualified Code(s): S72.145A - Nondisplaced intertrochanteric fracture of left femur, initial encounter for closed fracture
[2020-10-21] MEDS ORDERED: LANTUS PER UNIT CHARGE SQ ONE (09:00)
[2020-10-21] MEDS: SERTRALINE HCL 50 MG TABLET PO SCH (09:18)
[2020-10-21] MEDS: CEROVITE ADV FORMULA TAB PO SCH (09:18)
[2020-10-21] MEDS: DOCUSATE SODIUM 100 MG CAP PO SCH (09:18)
[2020-10-21] MEDS: ASPIRIN 325 MG ECTAB PO SCH (09:18)
[2020-10-21] MEDS: HALOPERIDOL 1 MG/0.5 ML UDP PO SCH (09:18)
[2020-10-21] MEDS: INSULIN ASPART 100 UNITS/ML 3 ML PEN SC SCH (09:19)
[2020-10-21] MEDS: TRIAMCINOLONE ACET 0.1% CR 15 GM TUBE TOP SCH (09:19)
[2020-10-21] MEDS: CHECK SCOPOLAMINE PATCH PLACEMENT SCH (09:19)
--- NOTE | 2020-10-21 10:07 | Pharmacy Report ---
Pharmacy Glycemic Short Note 2 - Date of Service October 21, 2020 - Glycemic Short BSG Results (Last 24 hours): 10/20/20 10/20/20 10/20/20 12:01 17:19 21:00 Glucose POC Glucose 230 H 187 H 162 H 10/21/20 10/21/20 07:00 08:07 Glucose 149 H POC Glucose 168 H OUTPATIENT ANTIDIABETIC REGIMEN: * Glimepiride 1 mg PO daily * Metformin 1000 mg PO BIDM * HbA1c = 6.5% (10/18/20) ASSESSMENT: 10/21: * Carlos received a total of 26 units of insulin yesterday, all bolus * BSGs were: [id number] mg/dL * Fasting BSG was elevated at 168 mg/dL this AM * Will give a one time dose of Lantus this AM to help control BSGs better over the next 24 hours * No changes in Novolog at this time * Provider discontinued Metformin so will not start this while inpatient again PLAN FOR INPATIENT GLYCEMIC CONTROL: * Basal insulin * Lantus 10 units SC x 1 dose this AM * Bolus insulin * NovoLog per scale ACHS or Q6hrs while NPO * Goal Range: Low 110 mg/dL - High 140 mg/dL * Correction Factor: 20 mg/dL/unit * Nutritional / Prandial insulin per carb ratio of 1 unit per 7 grams CHO consumed PLAN FOR DISCHARGE: * HbA1c = 6.5% which is at goal for this patient. Recommend continuing Amaryl and Metformin upon discharge as long as patient is not experiencing any hypoglycemia.
--- NOTE | 2020-10-21 12:49 | Discharge Summary ---
Date of Service October 21, 2020 Principal Diagnosis left hip fracture with repair post op acute blood loss anemia left brow ridge laceration with repair Discharge Exam The patient appeared well, he has early alzheimers and speaks short sentences Vital signs as documented. Lungs are clear to auscultation and appear unlabored Cardiac exam, Rhythm is regular.. No murmurs, rubs or gallops. Abdominal exam reveals normal bowel sounds, soft non tender, no masses Discharge Data Allergies Allergy/AdvReac Type Severity Reaction Status Date / Time No Known Allergies Allergy Unverified 10/17/20 07:51 Consultations 10/17/20 07:38 ED Decision to Admit Stat 10/17/20 09:46 Consult Anesthesiology Routine Consult Orthopedic Surgery Routine Procedures Performed Operation Date: 10/17/20 11:05 Actual Procedures p Left Short Synthes Troch Nail - Deo Hendrickson DO Operation Date: 10/18/20 11:35 Actual Procedures p Left Short Troch Nailing(Left) - Nestor Gates M.D. Ordered Studies 10/17/20 05:08 CT head/brain wo con Urgent 10/18/20 FL hip LT 2-3V Routine Hospital Course (1) Intertrochanteric fracture of left hip: Patient mechanical fall with a left intertrochanteric hip fracture. He has no cardiovascular symptoms upon interview he is lying flat in the bed his EKG shows relative bradycardia with low voltage but no concerning ST or T wave changes chest x-ray is unremarkable. laboratories are in good condition he does have some preoperative anemia he is medically optimized proceed to surgery, post op some acute blood loss anemia but did not require transfusion pt is with poor performance will return to snf to continue rehab 10/18/20 Left Short Troch Nailing, Surgeon: Nestor Gates (2) Alzheimers disease: Patient remains on trazodone and Zoloft (3) Diabetes mellitus with neuropathy: Patient glimepiride and metformin continue lisinopril for reduction of nephropathy from diabetes (4) DVT prophylaxis: ortho has chosen full dose aspirin as DVT prevention, full asprin for 4 weeks Total Time Total Time Spent Total Time Spent (In Minutes): It required greater than 30 minutes to prepare this patient for discharge Discharge Plan Discharge Items Patient Disposition: Trans Resident Long-Term Care Reason For Visit: LEFT HIP FRACTURE Discharge Diagnosis: left hip fracture s/p repair Activity Comment: per PT/OT Weightbearing: Left toe touch Non-emergency contact: Primary Care Provider and Surgeon Call non-emergency contact if: you have any medication questions, your pain is worsening and you have a fever Follow-up/Referrals: Darius Brian [Primary Care Provider] - Nestor Gates M.D. [Physician] - Diet: Regular Addtl Attending Provider Instructions: Please remove pts sutures in left brow ridge in 3 days, you may use antibiotic ointment twice a day to that area to prevent eschar from entrapping sutures full dose aspirin fo r4 weeks then return to 81 mg please watch for constipation while mobility is down and pt is on opiate pain relief . 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 You are to ambulate with a walker or crutches for approximately 6 weeks. B. You are TOE TOUCH WEIGHT BEARING on your operative lower extremity for at least 6 weeks. C. Wear low heeled shoes with non-slip soles D. Be sure that your floors are free of things that could trip you throw rugs, electrical cords, and small objects. Avoid wet and waxed floors, especially with crutches/walker/cane. E. Try to walk several times a day with rest periods between. F. You may shower 48 hours after surgery and get the incision area wet, but DO NOT soak or submerge incision area in water. (No baths, swimming pools, hot tubs) G. You may have a large, band-aid like dressing over your incision (Aquacel). This will remain on your incision for 7 days, and then can be removed. You CAN shower with this on. If incision is leaking through the dressing, please call the office . H. Do NOT apply soap or any ointment/lotions directly over incision. I. You may use ice as needed to operative site. SPECIAL CARE INSTRUCTIONS: VERY IMPORTANT TO READ AND REVIEW A. You may be at risk for phlebitis or blood clots. a. Wear surgical stockings (SHELLEY hose) for 2 weeks after surgery to improve circulation and reduce swelling. b. Take ASPIRIN 81 mg twice daily for 4 weeks or as directed. This is your blood thinner. c. If you are on Coumadin- you will have daily/weekly blood work to monitor your levels. This will be done by either your family physician/ethnic studies professor (if you are on Coumadin chronically) versus your orthopedic surgeon. Expect a phone call the day of or the day after your blood work is drawn to adjust your dose accordingly. B. There are a few signs you need to watch for after you are home. Call [facility] at [phone] if you experience any of the following: a. If you have a temperature of 101 degrees or higher. b. Sudden increase in pain in your hip not relieved by rest or pain medication. c. Any fluid or drainage from the incision; redness of the incision. d. Shortness of breath or chest pain. C. Call your physician if: a. Temperature is greater than 101 degrees (F). b. Pain is not relieved by prescribed pain medications. c. Increase drainage or redness from incision. d. Unanswered questions or concerns. D. Pain Medication: a. You will be prescribed pain medication upon discharge that should last till your first post-operative appointment. b. If you experience nausea and/or skin rash, discontinue this medication and contact our office for an alternative medication. c. Caution- narcotic pain medication can cause constipation. FOLLOW UP VISIT: Please call [facility] at [phone] to schedule a follow up appointment 10-14 days from the date of your surgery date. Pending Studies at Discharge: No Stand-Alone Forms: My [facility] Skilled Items Patient informed of condition?: Yes DNR: No Discharge Level of Care: Skilled Communicable Disease: No Discharge Prognosis: Stable Lines: None Urinary Catheter: No Medications and DC Order Prescriptions: New aspirin [Ecotrin] 325 mg Tablet,Delayed Release (Dr/Ec) 325 mg PO QAM Qty: 30 RF: 0 oxycodone 5 mg Tablet 5 - 10 mg PO Q4H PRN (Reason: pain) Qty: 20 RF: 0 Continued atorvastatin 40 mg Tablet 40 mg PO HS RF: 0 glucagon 1 mg Kit 1 mg IM DAILY PRN (Reason: Hypoglycemia) RF: 0 acetaminophen 325 mg Tablet 325 mg PO QID PRN (Reason: Pain) RF: 0 trazodone 50 mg tablet 50 mg PO HS RF: 0 triamcinolone acetonide 0.1 % cream 1 applic topical DAILY RF: 0 glimepiride [Amaryl] 1 mg Tablet 1 mg PO DAILY RF: 0 magnesium hydroxide [Milk of Magnesia] 400 mg/5 mL Suspension 400 mg PO DAILY PRN (Reason: Constipation) RF: 0 bisacodyl [Dulcolax (bisacodyl)] 10 mg Suppository 10 mg WA DAILY RF: 0 metformin 1,000 mg Tablet 1,000 mg PO BID RF: 0 Enema 19-7 gram/118 mL Enema 118 ml WA HS PRN (Reason: Constipation) RF: 0 scopolamine base 1 mg over 3 days patch 3 day 1 patch transdermal Q3D RF: 0 sertraline [Zoloft] 50 mg Tablet 50 mg PO DAILY RF: 0 haloperidol lactate 2 mg/mL Concentrate 1 mg PO Q12 RF: 0 [id number]-[id number]-[id number]-Eq-fxuvigm-lutein 0.4-162-18 mg Tablet 1 tab PO DAILY RF: 0 psyllium husk [Metamucil] 0.4 gram Capsule 0.4 g PO DAILY PRN (Reason: Constipation) RF: 0 Discontinued aspirin [Aspirin Low Dose] 81 mg Tablet,Delayed Release (Dr/Ec) 81 mg PO DAILY RF: 0 lisinopril 2.5 mg Tablet 2.5 mg PO DAILY RF: 0 Discharge Orders: Discharge Order (Routine); Ordered 10/21/20 Ordered By: Ronald Escalante/Other Patient Handouts: Managing Type 2 Diabetes, A1C Admission Data Admit Date/Time: 10/17/20 08:19 Attending Provider: Ronald Vicente Admit Provider: Ronald Vicente Primary Care Provider: Darius Brian Other Providers: Roc, ; Ronald Vicente ; Alexi Peterson ; Chadd Reveles Coding Level of Care Code D/C Day Management >30 mins Diagnoses Intertrochanteric fracture of left hip S72.145A Encounter type: initial encounter Fracture alignment: nondisplaced Fracture type: closed Alzheimers disease G30.9; F02.80 Diabetes mellitus with neuropathy E11.40 DVT prophylaxis Z29.9
== END 2020-10-21 13:00 | DRG 481 ==
LOC: ED 04:53 → 3N 08:19